=== PATIENT | female | born 1960 | race Caucasian/White ===

== ENCOUNTER → 2024-09-16 | Outpatient (CLI) | payer MEDICARE, SELFPAY ==
[2024-09-16 16:05] LABS: Absolute Lymphocyte Count 1.41 X10^3/uL (0.83-4.51); Absolute Neutrophil Count 3.2 X10^3/uL (2.0-7.7); Basophil# 0.06 X10^3/uL; Basophil% 1.2 % (0-1); Eosinophil# 0.08 X10^3/uL; Eosinophils% 1.6 % (0-5); Hematocrit 37.9 % (37-47); Hemoglobin 12.6 g/dL (12.0-15.0); Lymphocyte # 1.41 X10^3/ul (0.83-4.51); Lymphocyte % 27.9 % (19-41); Mean Corp Hgb Conc 33.2 g/dL (32-36); Mean Corpuscular Volume 96.2 fL (81-99); Mean Platelet Vol. 11.5 fl (6.2-12.0); Monocyte% 5.9 % (0-10); NRBC Flagged by Analyzer 0 % (0-5); Neutrophil # 3.19 X10^3/uL (2.7-7.7); Platelet Count 278 K/mm3 (150-450); RBC Distribution Width CV 12.5 % (11.6-14.6); RBC Distribution Width SD 44.1 fl (35.1-43.9); Red Blood Count 3.94 M/mm3 (4.2-5.4); White Blood Count 5.1 K/mm3 (4.4-11.0)
[2024-09-16 16:07] LABS: ALB/GLOB Ratio 1.5 RATIO (0.9-2.4); AST(SGOT) 21 U/L (<=31); Alanine Aminotransfer ALT/SGPT 13 U/L (<=34); Alkaline Phosphatase 65 U/L (35-104); Anion Gap 12 (5-15); BUN 18 mg/dL (4-19); BUN/Creat Ratio 20.3 RATIO (10-20); Calcium,Total 9.1 mg/dL (7.6-11.0); Carbon Dioxide 23.4 mmol/L (21.0-32.0); Chloride 104 mmol/L (98-108); Creatinine, Serum 0.87 mg/dL (0.70-1.20); EST Glomerular Filtration Rate 74 (>60); Globulin 2.7 g/dL (2.2-4.2); Glucose 146 mg/dL (70-99); Potassium 3.8 mmol/L (3.3-5.1); Protein, Total 6.7 g/dL (5.9-8.4); Sodium Level 139 mmol/L (133-145); Total Bilirubin 0.36 mg/dL (0.00-1.30)
== END | disposition home or self-care (01) ==
PROVIDERS: PCP Family Medicine; Visit Provider Family Medicine
DX: R60.0 Localized edema (principal)
CPT/HCPCS: 36415; 80053; 84443; 85025

== ENCOUNTER → 2024-10-07 | Outpatient (CLI) | payer MEDICARE, SELFPAY ==
--- NOTE | 2024-10-07 11:30 | RAD_ITS ---
PROCEDURE: CERV SPINE 2 OR 3 VIEWS 10/07/2024 REASON FOR EXAM: NECK PAIN TECHNIQUE: 3 views of the cervical spine. AP, lateral and open-mouth odontoid view COMPARISON: None available FINDINGS: Cervical spine is visualized on the lateral view from the skull base to the top of T1. No fracture or malalignment. No prevertebral soft tissue swelling. Suggestion of minimal anterolisthesis C4 on C5. Lnqwgani-wa-hkwfzw joint space narrowing C6-7. Bilateral mid to lower cervical facet hypertrophic changes. Suggestion of possible right carotid calcific plaque formation. Visualized apices appear clear. Edentulous. RAD/Cerv Spine 2 or 3 Views IMPRESSION: No fracture or malalignment. No prevertebral soft tissue swelling. Spondylosis/discogenic change. Suggestion of minimal anterolisthesis C4 on C5. Rfuudxiy-en-qlkgnw joint space narrowing C6-7. Bilateral mid to lower cervical facet hypertrophic changes Reading Location: [id number]
== END | disposition home or self-care (01) ==
LOC: MTRAD 11:25
PROVIDERS: PCP Family Medicine; Referring Provider Family Medicine; Visit Provider Family Medicine
DX: M54.2 Cervicalgia (principal)
CPT/HCPCS: 72040

== ENCOUNTER → 2024-11-11 | Outpatient (CLI) | payer MEDICARE, SELFPAY | END | disposition home or self-care (01) | LOC: BIMLAB 12:05 | PROVIDERS: PCP Family Medicine; Referring Provider Family Medicine; Visit Provider Family Medicine | DX: E03.9 Hypothyroidism, unspecified (principal) | CPT/HCPCS: 36415; 84439; 84443 ==

== ENCOUNTER → 2024-12-04 | Outpatient (CLI) | payer MEDICARE, SELFPAY ==
[2024-12-04 17:20] LABS: Hemoglobin A1c 5.4 % (<=5.6)
== END | disposition home or self-care (01) ==
LOC: BIMLAB 14:45
PROVIDERS: PCP Family Medicine; Referring Provider Family Medicine; Visit Provider Family Medicine
DX: R73.9 Hyperglycemia, unspecified (principal)
CPT/HCPCS: 36415; 83036

== ENCOUNTER 2025-02-02 02:16 | Emergency (ER) | payer MEDICARE, MEDICAID, SELFPAY ==
[2025-02-02 02:17] VITALS: BP 113/86; PULSE 93; RESP 16; TEMP 36.6; O2SAT 98; BMI 30.2
[2025-02-02 02:45] LABS: Hematocrit 35.7 % (37-47); Hemoglobin 12.3 g/dL (12.0-15.0); Immature Granulocytes Count 0.020 X10^3/uL (0.0-0.0); Mean Corp Hgb Conc 34.5 g/dL (32-36); Mean Corpuscular Volume 90.8 fL (81-99); Mean Platelet Vol. 10.4 fl (6.2-12.0); NRBC Flagged by Analyzer 0 % (0-5); Platelet Count 256 K/mm3 (150-450); RBC Distribution Width CV 12.9 % (11.6-14.6); RBC Distribution Width SD 42.5 fl (35.1-43.9); Red Blood Count 3.93 M/mm3 (4.2-5.4); White Blood Count 6.4 K/mm3 (4.4-11.0)
[2025-02-02 03:06] LABS: Alcohol, Blood (Medical)-Serum 58.6 mg/dL (<=10.0); Anion Gap 15 (5-15); BUN 11 mg/dL (4-19); BUN/Creat Ratio 12.9 RATIO (10-20); Calcium,Total 8.5 mg/dL (7.6-11.0); Carbon Dioxide 22.0 mmol/L (21.0-32.0); Chloride 103 mmol/L (98-108); Estimated Creatinine Clearance 54.17 ml/min (50-250); Glucose 109 mg/dL (70-99); Potassium 3.0 mmol/L (3.3-5.1)
[2025-02-02 03:12] LABS: Barbiturate Urine NEGATIVE (< 200 ng/mL); Benzodiazepine Urine PRESUMPTIVE POSITIVE (< 200 ng/mL); PCP Urine NEGATIVE (< 25 ng/mL); THC Urine PRESUMPTIVE POSITIVE (< 50 ng/mL)
[2025-02-02 03:16] VITALS: PULSE 80; RESP 18; O2SAT 97
--- OUTSIDE RECORDS SUMMARY | 2025-02-02 03:40 | XMS RPT_ITS | CCD ---
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 change in appetite Eyes Eyes: No blurry vision, change in vision, eye pain or Light sensitivity ENT ENT: No abnormal hearing, ear or mastoid pain, tinnitus, nasal congestion, headache(s), neck pain or sore throat Resp Respiratory: No cough, shortness of breath, snoring or wheezing Cardio Cardiology: Positive for other (skull pain migrates to different places and neck pain ); No chest pain at rest, chest pain with exertion, excessive sweating, shortness of breath, dyspnea on exertion, lightheadedness, orthopnea or palpitations Gastro GI: No abdominal pain, change in bowel habits, constipation, cramping, diarrhea, nausea/dyspepsia or vomiting Genitourinary-Female: No burning urination, painful urination, urinary incontinence, urinary frequency, blood in urine, abnormal periods or pelvic pain Musc Musculoskeletal: No abnormal gait, joint pain, back pain, limited range of motion, neck pain, numbness, stiffness, tingling or Arthritis Skin Skin: No dry skin, redness, lesions, itchy eyes, rash or wounds Neuro Neurology: No abnormal gait, abnormal hearing, abnormal speech, dizziness, weakness, frequent falls, headache(s), memory loss, numbness or tingling Psych Psychiatric: Positive for abnormal sleep pattern, Positive for anxiety, No change in appetite, Positive for depression, Positive for hopelessness, No memory loss, Positive for mood swings and No Thoughts of harming yourself/Others Endo Endocrine: No cold intolerance, excessive sweating, fatigue, flushing, heat intolerance, increased thirst/drinking, increased hunger or weight change Aller/Imm Allergy/Immunologic: No itchy eyes, seasonal allergy symptoms, hives or wheezing Kolby/Lymp Hematologic/Lymphatic: No easy bleeding, easy bruising or enlarged lymph nodes Exam Const General: cooperative, no acute distress and anxious Nutritional Appearance: average body habi (more content not included)... Normal [facility] Basic metabolic 2000 panelon 04-29-2024 Anion gap [Moles/Vol] 10 mmol/L Normal 8-15 [facility] Comment on above: Order Comment: Speci men Type: BLOOD SPECIMEN Ordering Facility: [facility] Address: [address] [place] [address] Performed By: #### 2 4321-2, 54540-1, HSTNT #### [facility] CLIA [id number] [address] [place] [address] [place] Calcium [Mass/Vol] 9.2 mg/dL Normal 8.5-10.2 [facility] Comment on above: Order Comment: Speci men Type: BLOOD SPECIMEN Ordering Facility: [facility] Address: [address] [place] [address] Performed By: #### 2 4321-2, 83324-8, HSTNT #### [facility] CLIA [id number] [address] [place] [address] [place] Chloride [Moles/Vol] 103 mmol/L Normal 98-107 [facility] Comment on above: Order Comment: Speci men Type: BLOOD SPECIMEN Ordering Facility: [facility] Address: [address] [place] [address] Performed By: #### 2 4321-2, 91774-4, HSTNT #### [facility] CLIA [id number] [address] [place] [address] [place] CO2 [Moles/Vol] 25 mmol/L Normal 22-30 [facility] Comment on above: Order Comment: Speci men Type: BLOOD SPECIMEN Ordering Facility: [facility] Address: [address] [place] [address] Performed By: #### 2 4321-2, 28695-0, HSTNT #### [facility] CLIA [id number] [address] [place] [address] [place] Creatinine [Mass/Vol] 1.07 mg/dL High 0.58-0.96 [facility] Comment on above: Order Comment: Lyn reyes Type: BLOOD SPECIMEN Ordering Facility: [facility] Address: [address] [place] [address] Performed By: #### 2 4321-2, 61337-4, HSTNT #### [facility] CLIA [id number] [address] [place] [address] [place] Creatinine and Glomerular filtration rate.predicted panel (S/P/Bld) 58 mL/min/1.73m??? Low >=60 [facility] Comment on above: Order Comment: Lyn reyes Type: BLOOD SPECIMEN Ordering Facility: [facility] Address: [address] [place] [address] Result Comment: Viviana mated Glomerular Filtration Rate (eGFR) is calculated using the 2020 CKD-EPI creatinine equation. This equation utilizes serum creatinine, sex, and age as parameters. The creatinine assay has traceable calibration to isotope dilution-mass spectrometry. Refer to KDIGO guidelines for clinical interpretation. In patients with unstable renal function, e.g. those with acute kidney injury, the eGFR may not accurately reflect actual GFR. Performed By: #### 2 4321-2, 21736-6, HSTNT #### [facility] CLIA [id number] [address] [place] [address] [place] Glucose [Mass/Vol] 97 mg/dL Normal 74-99 [facility] Comment on above: Order Comment: Lyn reyes Type: BLOOD SPECIMEN Ordering Facility: [facility] Address: [address] [place] [address] Result Comment: The [place] Diabetes Association (ADA) provides guidance for cutoff values for fasting glucose and random glucose. The ADA defines fasting as no caloric intake for at least 8 hours. Fasting plasma glucose results between 100 to 125 mg/dL indicate increased risk for diabetes (prediabetes). Fasting plasma glucose results greater than or equal to 126 mg/dL meet the criteria for diagnosis of diabetes. In the absence of unequivocal hyperglycemia, results should be confirmed by repeat testing. In a patient with classic symptoms of hyperglycemia or hyperglycemic crisis, random plasma glucose results greater than or equal to 200 mg/dL meet the criteria for diagnosis of diabetes. Reference: Standards of Medical Care in Diabetes 2016, [place] Diabetes Association. Diabetes Care. 2016.39(Suppl 1). Performed By: #### 2 4321-2, 68315-5, HSTNT #### [facility] CLIA [id number] [address] [place] [address] [place] Potassium [Moles/Vol] 4.0 mmol/L Normal 3.7-5.1 [facility] Comment on above: Order Comment: Speci men Type: BLOOD SPECIMEN Ordering Facility: [facility] Address: [address] [place] [address] Performed By: #### 2 4321-2, 07072-1, HSTNT #### [facility] CLIA [id number] [address] [place] [address] [place] Sodium [Moles/Vol] 138 mmol/L Normal 136-144 [facility] Comment on above: Order Comment: Speci men Type: BLOOD SPECIMEN Ordering Facility: [facility] Address: [address] [place] [address] Performed By: #### 2 4321-2, 52493-9, HSTNT #### [facility] CLIA [id number] [address] [place] [address] [place] Urea nitrogen [Mass/Vol] 16 mg/dL Normal 7- [facility] Comment on above: Order Comment: Speci men Type: BLOOD SPECIMEN Ordering Facility: [facility] Address: [address] [place] [address] Performed By: #### 2 4321-2, 44392-6, HSTNT #### [facility] CLIA [id number] [address] [place] [address] [place] CBC W Auto Differential pane l (Bld)on 04-29-2024 Basophils (Bld) [#/Vol] 10*3/uL Normal <0.11 [facility] Comment on above: Order Comment: Speci men Type: BLOOD SPECIMEN Ordering Facility: [facility] Address: [address] [place] [address] Performed By: #### 5 7021-8 #### [facility] CLIA [id number] [address] [place] [address] [place] Basophils/100 WBC (Bld) 0.3 % Normal [facility] Comment on above: Order Comment: Speci men Type: BLOOD SPECIMEN Ordering Facility: [facility] Address: [address] [place] [address] Performed By: #### 5 7021-8 #### [facility] CLIA [id number] [address] [place] [address] [place] Differential cell count method Nom (Bld) Auto Normal [facility] Comment on above: Order Comment: Speci men Type: BLOOD SPECIMEN Ordering Facility: [facility] Address: [address] [place] [address] Performed By: #### 5 7021-8 #### [facility] CLIA [id number] [address] [place] [address] [place] Eosinophils (Bld) [#/Vol] 10*3/uL Normal <0.46 [facility] Comment on above: Order Comment: Speci men Type: BLOOD SPECIMEN Ordering Facility: [facility] Address: [address] [place] [address] Performed By: #### 5 7021-8 #### [facility] CLIA [id number] [address] [place] [address] [place] Eosinophils/100 WBC (Bld) 0.3 % Normal [facility] Comment on above: Order Comment: Speci men Type: BLOOD SPECIMEN Ordering Facility: [facility] Address: [address] [place] [address] Performed By: #### 5 7021-8 #### [facility] CLIA [id number] [address] [place] [address] [place] Erythrocyte distribution width (RBC) [Ratio] 11.9 % Normal 11.5-15.0 [facility] Comment on above: Order Comment: Speci men Type: BLOOD SPECIMEN Ordering Facility: [facility] Address: [address] [place] [address] Performed By: #### 5 7021-8 #### [facility] CLIA [id number] [address] [place] [address] [place] Hematocrit (Bld) [Volume fraction] 38.9 % Normal 36.0-46.0 [facility] Comment on above: Order Comment: Speci men Type: BLOOD SPECIMEN Ordering Facility: [facility] Address: [address] [place] [address] Performed By: #### 5 7021-8 #### [facility] CLIA [id number] [address] [place] [address] [place] Hemoglobin (Bld) [Mass/Vol] 13.2 g/dL Normal 11.5-15.5 [facility] Comment on above: Order Comment: Speci men Type: BLOOD SPECIMEN Ordering Facility: [facility] Address: [address] [place] [address] Performed By: #### 5 7021-8 #### [facility] CLIA [id number] [address] [place] [address] [place] Immature granulocytes (Bld) [#/Vol] 0.04 10*3/uL Normal <0.10 [facility] Comment on above: Order Comment: Speci men Type: BLOOD SPECIMEN Ordering Facility: [facility] Address: [address] [place] [address] Performed By: #### 5 7021-8 #### [facility] CLIA [id number] [address] [place] [address] [place] Immature granulocytes/100 WBC (Bld) 0.7 % Normal [facility] Comment on above: Order Comment: Speci men Type: BLOOD SPECIMEN Ordering Facility: [facility] Address: [address] [place] [address] Performed By: #### 5 7021-8 #### [facility] CLIA [id number] [address] [place] [address] [place] Lymphocytes (Bld) [#/Vol] 1.60 10*3/uL Normal 1.00-4.00 [facility] Comment on above: Order Comment: Speci men Type: BLOOD SPECIMEN Ordering Facility: [facility] Address: [address] [place] [address] Performed By: #### 5 7021-8 #### [facility] CLIA [id number] [address] [place] [address] [place] Lymphocytes/100 WBC (Bld) 27.3 % Normal [facility] Comment on above: Order Comment: Speci men Type: BLOOD SPECIMEN Ordering Facility: [facility] Address: [address] [place] [address] Performed By: #### 5 7021-8 #### [facility] CLIA [id number] [address] [place] [address] [place] MCH (RBC) [Entitic mass] 31.7 pg Normal 26.0-34.0 [facility] Comment on above: Order Comment: Speci men Type: BLOOD SPECIMEN Ordering Facility: [facility] Address: [address] [place] [address] Performed By: #### 5 7021-8 #### [facility] CLIA [id number] [address] [place] [address] [place] MCHC (RBC) [Mass/Vol] 33.9 g/dL Normal 30.5-36.0 [facility] Comment on above: Order Comment: Speci men Type: BLOOD SPECIMEN Ordering Facility: [facility] Address: [address] [place] [address] Performed By: #### 5 7021-8 #### [facility] CLIA [id number] [address] [place] [address] [place] MCV (RBC) [Entitic vol] 93.5 fL Normal 80.0-100.0 [facility] Comment on above: Order Comment: Speci men Type: BLOOD SPECIMEN Ordering Facility: [facility] Address: [address] [place] [address] Performed By: #### 5 7021-8 #### [facility] CLIA [id number] [address] [place] [address] [place] Monocytes (Bld) [#/Vol] 0.36 10*3/uL Normal <0.87 [facility] Comment on above: Order Comment: Speci men Type: BLOOD SPECIMEN Ordering Facility: [facility] Address: [address] [place] [address] Performed By: #### 5 7021-8 #### [facility] CLIA [id number] [address] [place] [address] [place] Monocytes/100 WBC (Bld) 6.1 % Normal [facility] Comment on above: Order Comment: Speci men Type: BLOOD SPECIMEN Ordering Facility: [facility] Address: [address] [place] [address] Performed By: #### 5 7021-8 #### [facility] CLIA [id number] [address] [place] [address] [place] Neutrophils (Bld) [#/Vol] 3.83 10*3/uL Normal 1.45-7.50 [facility] Comment on above: Order Comment: Speci men Type: BLOOD SPECIMEN Ordering Facility: [facility] Address: [address] [place] [address] Performed By: #### 5 7021-8 #### [facility] CLIA [id number] [address] [place] [address] [place] Neutrophils/100 WBC (Bld) 65.3 % Normal [facility] Comment on above: Order Comment: Speci men Type: BLOOD SPECIMEN Ordering Facility: [facility] Address: [address] [place] [address] Performed By: #### 5 7021-8 #### [facility] CLIA [id number] [address] [place] [address] [place] Nucleated RBC (Bld) [#/Vol] 10*3/uL Normal <0.01 [facility] Comment on above: Order Comment: Speci men Type: BLOOD SPECIMEN Ordering Facility: [facility] Address: [address] [place] [address] Performed By: #### 5 7021-8 #### [facility] CLIA [id number] [address] [place] [address] [place] Nucleated RBC/100 WBC (Bld) [Ratio] 0.0 /[address] [facility] Comment on above: Order Comment: Speci men Type: BLOOD SPECIMEN Ordering Facility: [facility] Address: [address] [place] [address] Performed By: #### 5 7021-8 #### [facility] CLIA [id number] [address] [place] [address] [place] Platelet mean volume (Bld) [Entitic vol] 11.0 fL Normal 9.0-12.7 [facility] Comment on above: Order Comment: Speci men Type: BLOOD SPECIMEN Ordering Facility: [facility] Address: [address] [place] [address] Performed By: #### 5 7021-8 #### [facility] CLIA [id number] [address] [place] [address] [place] Platelets (Bld) [#/Vol] 255 10*3/uL Normal 150-400 [facility] Comment on above: Order Comment: Speci men Type: BLOOD SPECIMEN Ordering Facility: [facility] Address: [address] [place] [address] Performed By: #### 5 7021-8 #### [facility] CLIA [id number] [address] [place] [address] [place] RBC (Bld) [#/Vol] 4.16 10*6/uL Normal 3.90-5.20 [facility] Comment on above: Order Comment: Speci men Type: BLOOD SPECIMEN Ordering Facility: [facility] Address: [address] [place] [address] Performed By: #### 5 7021-8 #### [facility] CLIA [id number] [address] [place] [address] [place] WBC (Bld) [#/Vol] 5.87 10*3/uL Normal 3.70-11.00 [facility] Comment on above: Order Comment: Speci men Type: BLOOD SPECIMEN Ordering Facility: [facility] Address: [address] [place] [address] Performed By: #### 5 7021-8 #### [facility] CLIA [id number] [address] [place] [address] [place] [facility] ED NOTEon 04-29-2024 ED NOTE HNO ID: [id number] Author: MIREILLE CORONA, FRANCESCA Service: ? Author Type: Registered Nurse Type: ED Notes Filed: 04/29/2024 14:10 Note Text: Patient ambulates to triage without difficulty. She c/o being SOA for the past 4-5 months. [facility] ED PROV NOTEon 04-29-2024 ED PROV NOTE HNO ID: [id number] Author: DELMA GREY MD Service: ? Author Type: Physician Type: ED Provider Notes Filed: 04/29/2024 16:17 Note Text: ED Provider Note Patient Name: Alicia Patterson : 1960 SERVICE DATE: 04/29/24 History Patient presents with: Shortness of Breath 63-year-old female presents with complaints of shortness of breath and difficulty breathing. States she has a history of emphysema and since December, she has been having episodes of shortness of breath and difficulty breathing. States symptoms usually worsen the more she gets anxious. When she relaxes and when she uses Xanax, the symptoms improved. Patient lives in [place] but came appear 2 weeks ago to visit family. Patient had another episode of shortness of breath and difficulty breathing therefore came in for evaluation. She has had she did take some Xanax prior to arrival and her breathing at this time is back to normal. She has had episodes of chest pain but that is also intermittent. Pain starts on its own, last for about 5 minutes or so. It does not radiate into the neck or over to the arm. It does not get worse with breathing when it is present nor does it increase her shortness of breath. Cannot recall when the last time she had chest pain. She is not having any discomfort at this time though. No other lightheadedness or dizziness. No other abdominal discomfort, vomiting or diarrhea. No other swelling or pain to the calves. PAST MEDICAL HISTORY Diagnosis Date Hyperlipemia acid reflux, arthritis, depression PAST SURGICAL HISTORY Procedure Laterality Date PAST SURGICAL HISTORY OF knee, shoulder, appendix FAMILY HISTORY Problem Relation Age of Onset Cancer Father Cancer Paternal Grandfather Diabetes Mother Diabetes Sister Heart Mother Heart Sister Social History Tobacco Use Smoking status: Former Smokeless tobacco: Not on file Tobacco comments: 1 pk x 30 yrs Substance and Sexual Activity Alcohol use: No Drug use: Not on file Sexual activity: Not on file ALLERGIES No Known Allergies Review of Systems All other systems reviewed and are negative. Physical Exam Vitals [04/29/24 1410] BP Pulse Temp Temp src Resp SpO2 Weight Height 120/74 84 36.9 ?C (98.5 ?F) Oral 16 97 % 54.2 kg (119 lb 7.8 oz) 1.499 m (4' 11) Physical Exam Vitals (Unremarkable vital signs with a blood pressure 120. Pulse of 84. Respiratory rate at 16 with a 97% saturation. Temp at 98.5.) and nursing note reviewed. Constitutional: Appearance: She is well-developed. Comments: 63-year-old female in no respiratory distress and is speaking full sentences. HENT: Head: Normocephalic and atraumatic. Right Ear: External ear normal. Left Ear: External ear normal. Nose: Nose normal. Eyes: Conjunctiva/sclera: Conjunctivae normal. Pupils: Pupils are equal, round, and reactive to light. Neck: Thyroid: No thyromegaly. Trachea: No tracheal deviation. Cardiovascular: Rate and Rhythm: Normal rate and regular rhythm. Heart sounds: No murmur heard. No friction rub. No gallop. Pulmonary: Effort: Pulmonary effort is normal. No respiratory distress. Breath sounds: Normal breath sounds. Abdominal: General: Bowel sounds are normal. There is no distension. Palpations: Abdomen is soft. There is no mass. Tenderness: There is no abdominal tenderness. There is no guarding or rebound. Musculoskeletal: General: No tenderness. Normal range of motion. Cervical back: Normal range of motion and neck supple. Skin: General: Skin is warm and dry. Coloration: Skin is not pale. Findings: No rash. Neurological: General: No focal deficit present. Mental Status: She is alert and oriented to person, place, and time. Deep Tendon Reflexes: Reflexes are normal and symmetric. Psychiatric: Behavior: Behavior normal. Thought Content: Thought content normal. Judgment: Judgment normal. Diagnostic Testing ED Labs Ordered and Reviewed VENOUS BLOOD GASES - Abnormal; Notable for the following components: Result Value Ref Range pO2, Venous 190 (*) 35 - 45 mmHg O2 Saturation, Venous 100 (*) 60 - 85 % Oxyhemoglobin, Venous 97 (*) 60 - 85 % All other components within normal limits BASIC METABOLIC PANEL NT PRO BNP COMPLETE BLOOD COUNT AND DIFFERENTIAL HIGH SENSITIVITY TROPONIN T Results for orders placed or performed during the hospital encounter of 04/29/24 BASIC METABOLIC PANEL Result Value Ref Range Glucose 97 74 - 99 mg/dL BUN 16 7 - 21 mg/dL Creatinine 1.07 (H) 0.58 - 0.96 mg/dL Sodium 138 136 - 144 mmol/L Potassium 4.0 3.7 - 5.1 mmol/L Chloride 103 98 - 107 mmol/L CO2 25 22 - 30 mmol/L Anion Gap 10 8 - 15 mmol/L Calcium, Total 9.2 8.5 - 10.2 mg/dL Estimated Glomerular Filtration Rate 58 (L) >=60 mL/min/1.73m? NT PRO BNP Result Value Ref Range NT Pro BNP 88 <125 pg/mL COMPLETE BLOOD COUNT AND DIFFERENTIAL Result Value Ref Range WBC 5.87 3. (more content not included)... Normal [facility] Gas and Carbon monoxide pane l (BldV)on 04-29-2024 Base excess Calc (BldV) [Moles/Vol] 1 mmol/L Normal 0-2 [facility] Comment on above: Order Comment: Speci men Type: VENOUS BLOOD SPECIMEN Ordering Facility: [facility] Address: [address] [place] [address] Performed By: #### 2 4344-4 #### [facility] CLIA [id number] [address] [place] [address] [place] Body temperature 98.6 [degF] Normal [facility] Comment on above: Order Comment: Speci men Type: VENOUS BLOOD SPECIMEN Ordering Facility: [facility] Address: [address] [place] [address] Performed By: #### 2 4344-4 #### [facility] CLIA [id number] [address] [place] [address] [place] Calcium.ionized (Bld) [Mass/Vol] 1.14 mmol/L Normal 1.08-1.30 [facility] Comment on above: Order Comment: Speci men Type: VENOUS BLOOD SPECIMEN Ordering Facility: [facility] Address: [address] [place] [address] Performed By: #### 2 4344-4 #### [facility] CLIA [id number] [address] [place], [place] [address] [place] Calcium.ionized adjusted to pH 7.4 (BldA) [Moles/Vol] 1.13 mmol/L Normal 1.08-1.30 [facility] Comment on above: Order Comment: Speci men Type: VENOUS BLOOD SPECIMEN Ordering Facility: [facility] Address: [address] [place] [address] Performed By: #### 2 4344-4 #### [facility] CLIA [id number] [address] [place] [address] [place] Carboxyhemoglobin (BldV) [Mass fraction] 2.0 % Normal 0.0-2.0 [facility] Comment on above: Order Comment: Speci men Type: VENOUS BLOOD SPECIMEN Ordering Facility: [facility] Address: [address] [place] [address] Result Comment: Carb oxyhemoglobin Reference Range for Smokers: 2.0-8.0% Performed By: #### 2 4344-4 #### [facility] CLIA [id number] [address] [place] [address] [place] Chloride [Moles/Vol] 105 mmol/L Normal 97-105 [facility] Comment on above: Order Comment: Speci men Type: VENOUS BLOOD SPECIMEN Ordering Facility: [facility] Address: [address] [place] [address] Performed By: #### 2 4344-4 #### [facility] CLIA [id number] [address] [place] [address] [place] CO2 (BldV) [Partial pressure] 44 mm[Hg] Normal 42-55 [facility] Comment on above: Order Comment: Speci men Type: VENOUS BLOOD SPECIMEN Ordering Facility: [facility] Address: [address] [place] [address] Performed By: #### 2 4344-4 #### [facility] CLIA [id number] [address] [place] [address] [place] Glucose [Mass/Vol] 89 mg/dL Normal 60-105 [facility] Comment on above: Order Comment: Speci men Type: VENOUS BLOOD SPECIMEN Ordering Facility: [facility] Address: [address] [place] [address] Performed By: #### 2 4344-4 #### [facility] CLIA [id number] [address] [place] [address] [place] HCO3 (Bld) [Moles/Vol] 27 mmol/L Normal 24-28 [facility] Comment on above: Order Comment: Speci men Type: VENOUS BLOOD SPECIMEN Ordering Facility: [facility] Address: [address] [place] [address] Performed By: #### 2 4344-4 #### [facility] CLIA [id number] [address] [place] [address] [place] Hematocrit (Bld) [Volume fraction] 43.5 % Normal 36.0-46.0 [facility] Comment on above: Order Comment: Speci men Type: VENOUS BLOOD SPECIMEN Ordering Facility: [facility] Address: [address] [place] [address] Performed By: #### 2 4344-4 #### [facility] CLIA [id number] [address] [place] [address] [place] Hemoglobin (Bld) [Mass/Vol] 14.2 g/dL Normal 11.5-15.5 [facility] Comment on above: Order Comment: Speci men Type: VENOUS BLOOD SPECIMEN Ordering Facility: [facility] Address: [address] [place] [address] Performed By: #### 2 4344-4 #### [facility] CLIA [id number] [address] [place] [address] [place] Lactate [Moles/Vol] 1.0 mmol/L Normal 0.5-2.2 [facility] Comment on above: Order Comment: Speci men Type: VENOUS BLOOD SPECIMEN Ordering Facility: [facility] Address: [address] [place] [address] Performed By: #### 2 4344-4 #### [facility] CLIA [id number] [address] [place] [address] [place] Methemoglobin (Bld) [Mass fraction] % Normal 0.0-1.5 [facility] Comment on above: Order Comment: Speci men Type: VENOUS BLOOD SPECIMEN Ordering Facility: [facility] Address: [address] [place], [place] [address] Performed By: #### 2 4344-4 #### [facility] CLIA [id number] [address] [place] [address] [place] O2 THERAPY RA=Room Air Normal [facility] Comment on above: Order Comment: Speci men Type: VENOUS BLOOD SPECIMEN Ordering Facility: [facility] Address: [address] [place] [address] Performed By: #### 2 4344-4 #### [facility] CLIA [id number] [address] [place] [address] [place] Oxygen (BldV) [Partial pressure] 190 mm[Hg] High 35-45 [facility] Comment on above: Order Comment: Speci men Type: VENOUS BLOOD SPECIMEN Ordering Facility: [facility] Address: [address] [place] [address] Performed By: #### 2 4344-4 #### [facility] CLIA [id number] [address] [place] [address] [place] Oxygen saturation in Venous blood 100 % High 60-85 [facility] Comment on above: Order Comment: Speci men Type: VENOUS BLOOD SPECIMEN Ordering Facility: [facility] Address: [address] [place], [place] [address] Performed By: #### 2 4344-4 #### [facility] CLIA [id number] [address] [place] [address] [place] Oxyhemoglobin (BldV) [Mass fraction] 97 % High 60-85 [facility] Comment on above: Order Comment: Speci men Type: VENOUS BLOOD SPECIMEN Ordering Facility: [facility] Address: [address] [place] [address] Performed By: #### 2 4344-4 #### [facility] CLIA [id number] [address] [place] [address] [place] pH (BldV) 7.39 [pH] Normal 7.32-7.42 [facility] Comment on above: Order Comment: Speci men Type: VENOUS BLOOD SPECIMEN Ordering Facility: [facility] Address: [address] [place] [address] Performed By: #### 2 4344-4 #### [facility] CLIA [id number] [address] [place] [address] [place] Potassium [Moles/Vol] 3.8 mmol/L Normal 3.5-5.0 [facility] Comment on above: Order Comment: Speci men Type: VENOUS BLOOD SPECIMEN Ordering Facility: [facility] Address: [address] [place] [address] Performed By: #### 2 4344-4 #### [facility] CLIA [id number] [address] [place] [address] [place] Sodium [Moles/Vol] 140 mmol/L Normal 136-144 [facility] Comment on above: Order Comment: Speci men Type: VENOUS BLOOD SPECIMEN Ordering Facility: [facility] Address: [address] [place] [address] Performed By: #### 2 4344-4 #### [facility] CLIA [id number] [address] [place] [address] [place] HIGH SENSITIVITY TROPONIN To n 04-29-2024 Troponin T.cardiac High sensitivity method [Mass/Vol] <6 Normal <12 [facility] Comment on above: Order Comment: Speci men Type: BLOOD SPECIMEN Ordering Facility: [facility] Address: [address] [place] [address] Performed By: #### 2 4321-2, 10433-2, HSTNT #### [facility] CLIA [id number] [address] [place] [address] [place] NT-proBNP SerPl-mCncon 04-29 Natriuretic peptide.B prohormone N-Terminal [Mass/Vol] 88 pg/mL Normal <125 [facility] Comment on above: Order Comment: Speci men Type: BLOOD SPECIMEN Ordering Facility: [facility] Address: [address] [place] [address] Performed By: #### 2 4321-2, 44010-9, HSTNT #### [facility] CLIA [id number] [address] [place] [address] [place] XR CHEST 2V FRONTAL/LATon XR CHEST 2V FRONTAL/LAT * * *Final Report* * * DATE OF EXAM: Apr 29 2024 3:21PM UDX [id number] - XR CHEST 2V FRONTAL/LAT / PROCEDURE REASON: Shortness of breath * * * * Physician Interpretation * * * * EXAMINATION: CHEST RADIOGRAPH (2 VIEW FRONTAL and LATERAL) CLINICAL HISTORY: Shortness of breath MQ: [id number] EXAM DATE/TIME: 04/29/2024 3:21 PM COMPARISON: Chest x-ray 03/27/2012. RESULT: Lines, tubes, and devices: None. Lungs and pleura: No consolidation. No lung mass. No pleural effusion. No pneumothorax. Cardiomediastinal silhouette: Normal cardiomediastinal silhouette. Bones and soft tissues: Unremarkable. IMPRESSION: No acute radiographic abnormality. Winchman/Crane Operator: PSCB Transcribe Date/Time: Apr 29 2024 3:26P Dictated by : SISSY FELICIANO MD This examination was interpreted and the report reviewed and electronically signed by: SISSY FELICIANO MD on Apr 29 2024 3:26PM EST [id number] Normal [facility] BASIC METABOLIC PANELon 02-0 Anion gap [Moles/Vol] 9 mmol/L Low 10 - 20 [facility] Comment on above: Performed By: #### B MP #### [address] [id number] Calcium [Mass/Vol] 9.3 mg/dL Normal 8.6 - 10.3 [facility] Comment on above: Performed By: #### B MP #### [address] [id number] Chloride [Moles/Vol] 106 mmol/L Normal 98 - 107 [facility] Comment on above: Performed By: #### B MP #### [address] [id number] Creatinine [Mass/Vol] 0.66 mg/dL Normal 0.50 - 1.05 [facility] Comment on above: Performed By: #### B MP #### [address] [id number] eGFR FEMALE >90 Normal >90 [facility] Comment on above: Result Comment: CALC ULATIONS OF ESTIMATED GFR ARE PERFORMED USING THE 2020 CKD-EPI STUDY REFIT EQUATION WITHOUT THE RACE VARIABLE FOR THE IDMS-TRACEABLE CREATININE METHODS. https://jasn.asnjournals.org/content/early//ASN.95891 88393 Performed By: #### B MP #### [address] [id number] Glucose [Mass/Vol] 94 mg/dL Normal 74 - 99 [facility] Comment on above: Performed By: #### B MP #### [address] [id number] HCO3 (Bld) [Moles/Vol] 28 mmol/L Normal 21 - 32 [facility] Comment on above: Performed By: #### B MP #### [address] [id number] Potassium [Moles/Vol] 4.0 mmol/L Normal 3.5 - 5.3 [facility] Comment on above: Performed By: #### B MP #### [address] [id number] Sodium [Moles/Vol] 139 mmol/L Normal 136 - 145 [facility] Comment on above: Performed By: #### B MP #### [address] [id number] Urea nitrogen [Mass/Vol] 11 mg/dL Normal 6 - 23 [facility] Comment on above: Performed By: #### B MP #### [address] [place] [id number] CBCon 08-15-2022 Erythrocyte distribution width (RBC) [Ratio] 12.4 % Normal 11.5 - 14.5 [facility] Comment on above: Performed By: #### C BC #### [address] [id number] Hematocrit (Bld) [Volume fraction] 39.5 % Normal 36.0 - 46.0 [facility] Comment on above: Performed By: #### C BC #### [address] [id number] Hemoglobin (Bld) [Mass/Vol] 13.3 g/dL Normal 12.0 - 16.0 [facility] Comment on above: Performed By: #### C BC #### [address] [id number] MCHC (RBC) [Mass/Vol] 33.7 g/dL Normal 32.0 - 36.0 [facility] Comment on above: Performed By: #### C BC #### [address] [id number] MCV (RBC) [Entitic vol] 97 fL Normal 80 - 100 [facility] Comment on above: Performed By: #### C BC #### [address] [id number] Platelets (Bld) [#/Vol] 250 10*3/uL Normal 150 - 450 [facility] Comment on above: Performed By: #### C BC #### [address] [id number] RBC 4.07 x10E12/L Normal 4.00 - 5.20 [facility] Comment on above: Performed By: #### C BC #### [address] [id number] WBC (Bld) [#/Vol] 6.5 10*3/uL Normal 4.4 - 11.3 [facility] Comment on above: Performed By: #### C BC #### [address] [id number] Laboratory - Blood bankon ABO group Nom (Bld) O -EM [facility] Work Phone: Comment on above: No previous history found to confirm this result.If transfusion of RBC's or FFP is requested, a second sample must be collected at a separate phlebotomy to confirm the ABORH. Confirmatory ABORH can only be ordered by Lab Wildlife Ecologist. 08/15/2022 Blood group antibody screen Ql Negative [facility] Work Phone: Rh immune globulin screen (Bld) [Interp] Positive [facility] Work Phone: Laboratory - Chemistry and C hemistry - challengeon 08-15-2022 Anion gap [Moles/Vol] 9 mmol/L below low threshold 10 - 20 [facility] Work Phone: Calcium [Mass/Vol] 9.3 mg/dL 8.6 - 10.3 [facility] Work Phone: Chloride [Moles/Vol] 106 mmol/L 98 - 107 [facility] Work Phone: CO2 [Moles/Vol] 28 mmol/L 21 - 32 [facility] Work Phone: Creatinine [Mass/Vol] 0.66 mg/dL See Below - [facility] Work Phone: Comment on above: Reference Range: 0.5 0 - 1.05 Glucose [Mass/Vol] 94 mg/dL 74 - 99 [facility] Work Phone: Potassium [Moles/Vol] 4.0 mmol/L 3.5 - 5.3 - [facility] Work Phone: Sodium [Moles/Vol] 139 mmol/L 136 - 145 [facility] Work Phone: Urea nitrogen [Mass/Vol] 11 mg/dL 6 - 23 -[facility] Work Phone: Laboratory - Hematology and Cell countson 08-15-2022 Erythrocyte distribution width (RBC) [Ratio] 12.4 % See Below -[facility] Work Phone: Comment on above: Reference Range: 11. 5 - 14.5 Hematocrit (Bld) [Volume fraction] 39.5 % See Below -[facility] Work Phone: Comment on above: Reference Range: 36. 0 - 46.0 Hemoglobin (Bld) [Mass/Vol] 13.3 g/dL See Below [facility] Work Phone: Comment on above: Reference Range: 12. 0 - 16.0 MCHC (RBC) [Mass/Vol] 33.7 g/dL See Below - [facility] Work Phone: Comment on above: Reference Range: 32. 0 - 36.0 MCV (RBC) [Entitic vol] 97 fL 80 - 100 -[facility] Work Phone: Platelets (Bld) [#/Vol] 250 10*3/uL 150 - 450 -[facility] Work Phone: RBC (Bld) [#/Vol] 4.07 {x10E12/L} See Below -[facility] Work Phone: Comment on above: Reference Range: 4.0 0 - 5.20 WBC (Bld) [#/Vol] 6.5 10*3/uL 4.4 - 11.3 [facility] Work Phone: No Panel Informationon 08-15 >90 >90 [facility] Work Phone: Comment on above: CALCULATIONS OF VIVIANA MATED GFR ARE PERFORMED USING THE 2020 CKD-EPI STUDY REFIT EQUATION WITHOUT THE RACE VARIABLE FOR THE IDMS-TRACEABLE CREATININE METHODS.https://jasn.asnjournals.org/content//A SN.9834528758 TYPE + SCREENon 08-15-2022 ABO TYPE O Normal [facility] Comment on above: Result Comment: No p revious history found to confirm this result. If transfusion of RBC's or FFP is requested, a second sample must be collected at a separate phlebotomy to confirm the ABORH. Confirmatory ABORH can only be ordered by Lab Wildlife Ecologist. 08/15/2022 Performed By: #### T +S #### [address] [id number] RH TYPE Positive Normal [facility] Comment on above: Performed By: #### T +S #### [address] [id number] URINALYSIS WITH CULTURE IF I NDICATEDon 08-15-2022 Appearance (U) HAZY Normal CLEAR [facility] Comment on above: Performed By: #### U ARFX #### [address] [id number] Bilirubin Ql (U) Negative Normal NEGATIVE [facility] Comment on above: Performed By: #### U ARFX #### [address] [id number] Color (U) YELLOW Normal STRAW,YELLO W [facility] Comment on above: Performed By: #### U ARFX #### [address] [id number] Glucose Ql (U) Negative Normal NEGATIVE [facility] Comment on above: Performed By: #### U ARFX #### [address] [id number] Hemoglobin Ql (U) Negative Normal NEGATIVE [facility] Comment on above: Performed By: #### U ARFX #### [address] [id number] Ketones Ql (U) Negative Normal NEGATIVE [facility] Comment on above: Performed By: #### U ARFX #### [address] [id number] Leukocyte esterase Test strip Ql (U) Negative Normal NEGATIVE [facility] Comment on above: Performed By: #### U ARFX #### [address] [id number] Nitrite Ql (U) Negative Normal NEGATIVE [facility] Comment on above: Performed By: #### U ARFX #### [address] [id number] pH (U) 8.0 [pH] Normal 5.0 - 8.0 [facility] Comment on above: Performed By: #### U ARFX #### [address] [id number] Protein Ql (U) Negative Normal NEGATIVE [facility] Comment on above: Performed By: #### U ARFX #### [address] [id number] Specific gravity (U) [Rel density] 1.015 Normal 1.005 - 1.035 [facility] Comment on above: Performed By: #### U ARFX #### [address] [id number] Urobilinogen (U) [Mass/Vol] mg/dL Normal 0.0 - 1.9 [facility] Comment on above: Performed By: #### U ARFX #### [address] [id number] Color (U) YELLOW See Below [facility] Work Phone: Comment on above: Reference Range: STR AW,YELLOW Glucose Ql (U) Negative NEGATIVE [facility] Work Phone: Ketones Ql (U) Negative NEGATIVE [facility] Work Phone: Leukocyte esterase Test strip Ql (U) Negative NEGATIVE [facility] Work Phone: pH (U) 8.0 [pH] 5.0 - 8.0 SHARMILA-EMMike Christiansen [facility] Work Phone: Protein (U) [Mass/Vol] Negative NEGATIVE SHARMILA PimentelEM Alfonso [facility] Work Phone: RBC (U) [#/Vol] Negative NEGATIVE SHARMILA-MARIYA Hamilton [facility] Work Phone: Specific gravity (U) [Rel density] 1.015 1 See Below MARIUM Christiansen [facility] Work Phone: Comment on above: Reference Range: 1.0 05 - 1.035 URINALYSIS WITH CULTURE IF INDICATED Negative NEGATIVE [facility] Work Phone: URINALYSIS WITH CULTURE IF INDICATED <2.0 0.0 - 1.9 MARIUM Christiansen [facility] Work Phone: URINALYSIS WITH CULTURE IF INDICATED HAZY CLEAR MARIUM Christiansen [employer] Work Phone: Medicare Annual Wellness Vis iton 07-19-2022 Medicare Annual Wellness Visit *Chief Complaint Annual Medicare Wellness. History of Present Illness The patient is being seen for the subsequent annual wellness visit. Past Medical, Surgical and Family History: reviewed and updated in chart. Interval History: Patient has not been hospitalized previously. Medications and Supplements: No, the patient is not using opioids. Health Risk Assessment:. Paper HRA completed by patient and scanned into chart. Patient Self Assessment of Health Status: good. Tobacco use: User Alcohol use: Non-User Illicit drug use: Non-User Current diet: unhealthy diet, does not consume adequate fluids and does not consume caffeine. Exercise Frequency: the patient does not exercise. Depression/Suicide Screening: Patient has a current diagnosis of depression . During the past 2 weeks, the patient has not felt down, depressed or hopeless. During the past 2 weeks, the patient has not felt little interest or pleasure in doing things. Loss of spouse Hearing Impairment: none. Cognitive Impairment: Cognitive impairment was observed, patient or family reported no cognitive impairment. Bathing: performs independently. Dressing: performs independently. Walking: performs independently. Toileting: performs independently. Feeding: performs independently. Personal Hygiene: performs independently. Bowels: continent. Bladder: continent. Managing Finances: needs assistance. Shopping: needs assistance. Managing Medications: needs assistance. Housework / Basic Home Maintenance: performs independently. Handling Transportation: needs assistance. Preparing Meals: performs independently. Using the Telephone/ Communication Devices: performs independently. Falls Risk Screening:. ALICIA has not fallen in the last 6 months. Her fall did not result in injury. Advance directives:. Advanced Care Planning discussed and documented advance care plan or surrogate decision maker documented in the medical record. Patient has no living will. Patient has healthcare POA. Rx , ROV Review of Systems Eyes: oph. Gastrointestinal: cologuard 20'. Genitourinary: unexplained vaginal bleeding and Dr. Spaulding , , 08/16/22 hysterectomy. Psychiatric: depression, sleep disturbances and anxiety, but no confusion, no memory lapses or loss, not suicidal, no personality change and no emotional problems. 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) Generalized anxiety disorder (300.02) (F41.1) GERD without esophagitis (530.81) (K21.9) Headache (784.0) (R51.9) Hyperlipidemia (272.4) (E78.5) Menieres disease (386.00) (H81.09) New daily persistent headache (339.42) (G44.52) Nicotine dependence (305.1) (F17.200) Osteoporosis, unspecified osteoporosis type, unspecified pathological fracture presence (733.00) (M81.0) Pelvic pain in female (625.9) (R10.2) Post-menopausal bleeding (627.1) (N95.0) Post-traumatic headache, not intractable, unspecified chronicity pattern (339.20) (G44.309) Potassium deficiency (276.8) (E87.6) 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) (G51.0) Screening for malignant neoplasm of colon (V76.51) (Z12.11) Seborrheic keratoses (702.19) (L82.1) Skin lesion of left leg (709.9) (L98.9) Syncope (780.2) (R55) Past Medical History History of Elevated triglycerides with high cholesterol (272.2) (E78.2) History of Health care maintenance (V70.0) (Z00.00) History of arthritis (V13.4) (Z87.39) History of chest pain (V13.89) (Z87.898) History of depression (V11.8) (Z86.59) History of peptic ulcer (V12.71) (Z87.11) History of urinary tract infection (V13.02) (Z87.440) History of vitamin D deficiency (V12.1) (Z86.39) History of Skin lesion (709.9) (L98.9) Surgical History History of Appendectomy History of Knee Surgery Right History of Rotator Cuff Repair History of Tubal ligation Family History Family history of cardiac disorder (V17.49) (Z82.49) Family history of cardiac pacemaker (V17.49) (Z82.49) Family history of diabetes mellitus (V18.0) (Z83.3) Family history of Mesothelioma Family history of cardiac pacemaker (V17.49) (Z82.49) Family history of diabetes mellitus (V18.0) (Z83.3) Family history of malignant neoplasm of brain (V16.8) (Z80.8) Family history of lung cancer (V16.1) (Z80.1) Family history of malignant neoplasm of ovary (V16.41) (Z80.41) Family history of lung cancer (V16.1) (Z80.1) Family history of lung cancer (more content not included)... Normal [facility] Tobacco Screening.on 023 Adult depression screening assessment No [facility] 125 Work Phone: Adult depression screening assessment Yes [facility] 125 Work Phone: Fall risk assessment a) No falls within the last year [facility] Work Phone: Tobacco use status CPHS a) Yes [facility] 125 Work Phone: Tobacco Screening. Yes [facility] Work Phone: Blood Pressure Cuff Sizeon 1 08-14-2021 Adult depression screening assessment No [facility] Work [facility]: Fall risk assessment a) No falls within the last year [facility] Work Phone: Tobacco use status CP a) Yes [facility] Work Phone: Blood Pressure Cuff Size Adult [facility] Work Phone: CHIEF OF PLANNING - Office Visiton 12-0 CHIEF OF PLANNING - Office Visit Diagnoses/Problems Assessed Bacterial vaginosis (616.10,041.9) (N76.0,B96.89) Orders Start: metroNIDAZOLE 500 MG Oral Tablet; TAKE 1 TABLET TWICE DAILY UNTIL FINISHED Patient Discussion/Summary Risks benefits alternatives discussed with the patient risks including bleeding infection or damage to surrounding tissues. Bleeding requiring blood transfusion transfusion reaction or infection. Infection of the superficial or deep spaces. Damage to bladder bowel ureters vascular structures abdominal wall. Requiring further surgery acutely or prolonged hospitalization or returned to the operating room. All questions answered to the best my ability. Provider Impressions 61-year-old recurrent postmenopausal bleeding VNOTES hysterectomy BSO Chief Complaint Alicia is here today for consult. History of Present IllnessAlicia is a 61 year old patient here today for surgery scheduling. She was seen last in person on 12/20/21 r/t PMB. At that time, hysteroscopy and EMB was completed. A phone visit was scheduled and completed to review results. She is here today to discuss hysterectomy due to another episode of PMB 2 weeks ago. This was a period amount of bleeding lasting 1 day. Heel Sorter: FRANCESCA New Reviewed options short-term estrogen use to stabilize likely atrophic endometrium with re biopsy versus hysterectomy Primary diagnosis is atrophic postmenopausal bleeding Reviewed risk of smoking and improvement in surgical risk with cessation she is at 1 pack/day we will try Review of Systems Constitutional: no fever and no chills. Respiratory: no shortness of breath. Gastrointestinal: no abdominal pain, no constipation, no nausea, no diarrhea and no melena. Genitourinary: no dysuria, no urinary incontinence, no vaginal dryness, no vaginal itching, no dyspareunia, no pelvic pain, no dysmenorrhea, no sexual problems, no change in urinary frequency, no vaginal discharge, no unexplained vaginal bleeding, no lesion/sore and no vulvar/vaginal pain. Integumentary: no nipple discharge, no breast pain and no breast lump. Neurological: no headache. Psychiatric: no sleep disturbances, no anxiety and no depression. Endocrine: no hot flashes. 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) Generalized anxiety disorder (300.02) (F41.1) GERD without esophagitis (530.81) (K21.9) Headache (784.0) (R51.9) Hyperlipidemia (272.4) (E78.5) Menieres disease (386.00) (H81.09) New daily persistent headache (339.42) (G44.52) Nicotine dependence (305.1) (F17.200) Osteoporosis, unspecified osteoporosis type, unspecified pathological fracture presence (733.00) (M81.0) Pelvic pain in female (625.9) (R10.2) Post-menopausal bleeding (627.1) (N95.0) Post-traumatic headache, not intractable, unspecified chronicity pattern (339.20) (G44.309) Potassium deficiency (276.8) (E87.6) 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) (G51.0) Screening for malignant neoplasm of colon (V76.51) (Z12.11) Seborrheic keratoses (702.19) (L82.1) Skin lesion of left leg (709.9) (L98.9) Syncope (780.2) (R55) Past Medical History Problems History of Elevated triglycerides with high cholesterol (272.2) (E78.2) History of Health care maintenance (V70.0) (Z00.00) History of arthritis (V13.4) (Z87.39) History of chest pain (V13.89) (Z87.898) History of depression (V11.8) (Z86.59) History of peptic ulcer (V12.71) (Z87.11) History of urinary tract infection (V13.02) (Z87.440) History of vitamin D deficiency (V12.1) (Z86.39) History of Skin lesion (709.9) (L98.9) Surgical History Problems History of Appendectomy History of Knee Surgery Right History of Rotator Cuff Repair History of Tubal ligation Family History Mother Family history of cardiac disorder (V17.49) (Z82.49) Family history of cardiac pacemaker (V17.49) (Z82.49) Family history of diabetes mellitus (V18.0) (Z83.3) Father Family history of Mesothelioma Sister Family history of cardiac pacemaker (V17.49) (Z82.49) Family history of diabetes mellitus (V18.0) (Z83.3) Brother Family history of malignant neoplasm of brain (V16.8) (Z80.8) Maternal Grandmother Family history of lung cancer (V16.1) (Z80.1) Family history of malignant neoplasm of ovary (V16.41) (Z80.41) Paternal Grandmother Family history of lung cancer (V16.1) (Z80.1) Paternal Grandfather Family history of lung c (more content not included)... Normal [employer] Basic Metabolic Panelon 08-3 Anion gap [Moles/Vol] 12 mmol/L Normal 9-15 [facility] Comment on above: Performed By: #### B MP #### [facility] [address] [place] [address] Calcium [Mass/Vol] 9.7 mg/dL Normal 8.5-9.9 [facility] Comment on above: Performed By: #### B MP #### [facility] [address] [place] [address] Chloride [Moles/Vol] 106 mmol/L Normal 95-107 [facility] Comment on above: Performed By: #### B MP #### [facility] [address] [place] [address] CO2 [Moles/Vol] 26 mmol/L Normal 20-[address] [facility] Comment on above: Performed By: #### B MP #### [facility] [address] [place] [address] Creatinine [Mass/Vol] 0.60 mg/dL Normal 0.50-0.90 [facility] Comment on above: Performed By: #### B MP #### [facility] [address] [place] [address] GFR >60.0 Normal >60 [facility] Comment on above: Result Comment: >60 mL/min/1.73m2 EGFR, calc. for ages 18 and older using the MDRD formula (not corrected for weight), is valid for stable renal function. Performed By: #### B MP #### [facility] [address] [place] [address] GFR/1.73 sq M.predicted among blacks MDRD (S/P/Bld) [Vol rate/Area] mL/min/{1.73_m2} Normal >60 [facility] Comment on above: Result Comment: >60 mL/min/1.73m2 EGFR, calc. for ages 18 and older using the MDRD formula (not corrected for weight), is valid for stable renal function. Performed By: #### B MP #### [facility] [address] [place] [address] Glucose [Mass/Vol] 116 mg/dL Critically high 70-99 [facility] Comment on above: Performed By: #### B MP #### [facility] [address] [place] [address] Potassium [Moles/Vol] 3.5 mmol/L Normal 3.4-4.9 [facility] Comment on above: Performed By: #### B MP #### [facility] [address] [place] [address] Sodium [Moles/Vol] 144 mmol/L Normal 135-144 [facility] Comment on above: Performed By: #### B MP #### [facility] [address] [place] [address] Urea nitrogen [Mass/Vol] 20 mg/dL Normal 8-23 [facility] Comment on above: Performed By: #### B MP #### [facility] [address] [place] [address] Anion gap [Moles/Vol] 12 mmol/L [facility] Calcium [Mass/Vol] 9.7 mg/dL 8.5 - 9.9 mg/dL [facility] Chloride [Moles/Vol] 106 mmol/L [facility] CO2 [Moles/Vol] 26 mmol/L [facility] Creatinine [Mass/Vol] 0.6 mg/dL 0.5 - 0.9 mg/dL [facility] GFR >60.0 60 - PINF [facility] Comment on above: >60 mL/min/1.73m2 EG FR, calc. for ages 18 and older using the MDRD formula (not corrected for weight), is valid for stable renal function. GFR Non- >60.0 60 - PINF [facility] Comment on above: >60 mL/min/1.73m2 EG FR, calc. for ages 18 and older using the MDRD formula (not corrected for weight), is valid for stable renal function. Glucose [Mass/Vol] 116 mg/dL High 70 - 99 mg/dL [facility] Interpretation and review of laboratory results Abnormal [facility] Potassium [Moles/Vol] 3.5 mmol/L [facility] Sodium [Moles/Vol] 144 mmol/L [facility] Urea nitrogen (BldV) [Mass/Vol] 20 mg/dL 8 - 23 mg/dL [facility] CBC With Platelet and Differ entialon 03-09-2022 Abs Imm Granulocytes 0.0 K/uL Normal [facility] Comment on above: Performed By: #### C BCWD #### [facility] [address] [place] [address] Basophils (Bld) [#/Vol] 0.0 10*3/uL Normal 0.0-0.1 [facility] Comment on above: Performed By: #### C BCWD #### [facility] [address] [place] [address] Basophils/100 WBC (Bld) 0.2 % Normal 0.1-1.2 [facility] Comment on above: Performed By: #### C BCWD #### [facility] [address] [place] [address] Eosinophils (Bld) [#/Vol] 0.0 10*3/uL Normal 0.0-0.4 [facility] Comment on above: Performed By: #### C BCWD #### [facility] [address] [place] [address] Eosinophils/100 WBC (Bld) 0.3 % Low 0.7-5.8 [facility] Comment on above: Performed By: #### C BCWD #### [facility] [address] [place] [address] Erythrocyte distribution width (RBC) [Ratio] 12.5 % Normal 11.7-14.4 [facility] Comment on above: Performed By: #### C BCWD #### [facility] [address] [place] [address] Hematocrit (Bld) [Volume fraction] 41.0 % Normal 37.0-47.0 [facility] Comment on above: Performed By: #### C BCWD #### [facility] [address] [place] [address] Hemoglobin (Bld) [Mass/Vol] 13.9 g/dL Normal 11.2-15.7 [facility] Comment on above: Performed By: #### C BCWD #### [facility] [address] [place] [address] Imm Granulocytes 0.3 % Normal [facility] Comment on above: Performed By: #### C BCWD #### [facility] [address] [place] [address] Lymphocytes (Bld) [#/Vol] 1.7 10*3/uL Normal 1.2-3.7 [facility] Comment on above: Performed By: #### C BCWD #### [facility] [address] [place] [address] Lymphocytes/100 WBC (Bld) 29.4 % Normal [facility] Comment on above: Performed By: #### C BCWD #### [facility] [address] [place] [address] MCH (RBC) [Entitic mass] 31.7 pg Normal 25.6-32.2 [facility] Comment on above: Performed By: #### C BCWD #### [facility] [address] [place] [address] MCHC 33.9 % Normal 32.2-35.5 [facility] Comment on above: Performed By: #### C BCWD #### [facility] [address] [place] [address] MCV (RBC) [Entitic vol] 93.6 fL Normal 79.4-94.8 [facility] Comment on above: Performed By: #### C BCWD #### [facility] [address] [place] [address] Monocytes (Bld) [#/Vol] 0.5 10*3/uL Normal 0.2-0.9 [facility] Comment on above: Performed By: #### C BCWD #### [facility] [address] [place] [address] Monocytes/100 WBC (Bld) 8.6 % Normal 4.7-12.5 [facility] Comment on above: Performed By: #### C BCWD #### [facility] [address] [place] [address] Neutrophils (Bld) [#/Vol] 3.6 10*3/uL Normal 1.6-6.1 [facility] Comment on above: Performed By: #### C BCWD #### [facility] [address] [place] [address] Neutrophils/100 WBC (Bld) 61.2 % Normal 34.0-71.1 [facility] Comment on above: Performed By: #### C BCWD #### [facility] [address] [place] [address] Platelets (Bld) [#/Vol] 173 10*3/uL Low 182-369 [facility] Comment on above: Performed By: #### C BCWD #### [facility] [address] [place] [address] RBC (Bld) [#/Vol] 4.38 10*6/uL Normal 3.93-5.22 [facility] Comment on above: Performed By: #### C BCWD #### [facility] [address] [place] [address] WBC (Bld) [#/Vol] 5.9 10*3/uL Normal 4.0-10.0 [facility] Comment on above: Performed By: #### C ROLANDO #### [facility] [address] [place] [address] CBC with Auto Differentialon 03-09-2022 Basophils (Bld) [#/Vol] 0.0 10*3/uL 0 - 0.1 K/uL [facility] Basophils/100 WBC (Bld) 0.2 % 0.1 - 1.2 % [facility] Eosinophils (Bld) [#/Vol] 0.0 10*3/uL 0 - 0.4 K/uL [facility] Eosinophils/100 WBC (Bld) 0.3 % Low 0.7 - 5.8 % [facility] Hematocrit (Bld) [Volume fraction] 41.0 % 37 - 47 % [facility] Hemoglobin (Bld) [Mass/Vol] 13.9 g/dL 11.2 - 15.7 g/dL [facility] Immature granulocytes (Bld) [#/Vol] 0.0 10*3/uL [facility] Immature granulocytes/100 WBC (Bld) 0.3 % [facility] Interpretation and review of laboratory results Abnormal [facility] Lymphocytes (Bld) [#/Vol] 1.7 10*3/uL 1.2 - 3.7 K/uL [facility] Lymphocytes/100 WBC (Bld) 29.4 % [facility] MCH (RBC) [Entitic mass] 31.7 pg 25.6 - 32.2 pg [facility] MCHC (RBC) [Mass/Vol] 33.9 % 32.2 - 35.5 % [facility] MCV (RBC) [Entitic vol] 93.6 fL 79.4 - 94.8 fL [facility] Monocytes (Bld) [#/Vol] 0.5 10*3/uL 0.2 - 0.9 K/uL [facility] Monocytes/100 WBC (Bld) 8.6 % 4.7 - 12.5 % [facility] Neutrophils Absolute 3.6 K/uL 1.6 - 6 .1 K/uL [facility] Neutrophils/100 WBC (Bld) 61.2 % 34 - 71.1 % [facility] Platelet distribution width (Bld) [Ratio] 12.5 % 11.7 - 14.4 % [facility] Platelets (Bld) [#/Vol] 173 10*3/uL Low 182 - 369 K/uL [facility] RBC (Bld) [#/Vol] 4.38 10*6/uL [facility] WBC (Bld) [#/Vol] 5.9 10*3/uL 4 - 10 K/uL [facility] CHIEF OF PLANNING - Office Visiton - CHIEF OF PLANNING - Office Visit Provider Melba coronel 61-year-old status post hysteroscopy directed sampling of endometrium low risk atrophy with scarring, inadequate sampling however no high risk features if rebleed plan hysterectomy Chief Complaint A telephone visit (audio only) between the patient (at the originating site) and the provider (at the distant site) was utilized to provide this telehealth service. Verbal consent was requested and obtained from ALICIA PATTERSON on this date, 01/05/2022 02:45 PM , for a telehealth visit. Est pt 2 week fu to emb History of Present IllnessInadequate sample no high risk features on imaging or hysteroscopy okay to follow clinically discussed rebleed recommend proceeding to hysterectomy 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) Generalized anxiety disorder (300.02) (F41.1) GERD without esophagitis (530.81) (K21.9) Headache (784.0) (R51.9) Hyperlipidemia (272.4) (E78.5) Menieres disease (386.00) (H81.09) New daily persistent headache (339.42) (G44.52) Nicotine dependence (305.1) (F17.200) Osteoporosis, unspecified osteoporosis type, unspecified pathological fracture presence (733.00) (M81.0) Pelvic pain in female (625.9) (R10.2) Post-menopausal bleeding (627.1) (N95.0) Post-traumatic headache, not intractable, unspecified chronicity pattern (339.20) (G44.309) Potassium deficiency (276.8) (E87.6) 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) (G51.0) Screening for malignant neoplasm of colon (V76.51) (Z12.11) Seborrheic keratoses (702.19) (L82.1) Skin lesion of left leg (709.9) (L98.9) Syncope (780.2) (R55) Past Medical History Problems History of Elevated triglycerides with high cholesterol (272.2) (E78.2) History of Health care maintenance (V70.0) (Z00.00) History of arthritis (V13.4) (Z87.39) History of chest pain (V13.89) (Z87.898) History of depression (V11.8) (Z86.59) History of peptic ulcer (V12.71) (Z87.11) History of urinary tract infection (V13.02) (Z87.440) History of vitamin D deficiency (V12.1) (Z86.39) History of Skin lesion (709.9) (L98.9) Surgical History Problems History of Appendectomy History of Knee Surgery Right History of Rotator Cuff Repair History of Tubal ligation Family History Mother Family history of cardiac disorder (V17.49) (Z82.49) Family history of cardiac pacemaker (V17.49) (Z82.49) Family history of diabetes mellitus (V18.0) (Z83.3) Father Family history of Mesothelioma Sister Family history of cardiac pacemaker (V17.49) (Z82.49) Family history of diabetes mellitus (V18.0) (Z83.3) Brother Family history of malignant neoplasm of brain (V16.8) (Z80.8) Maternal Grandmother Family history of lung cancer (V16.1) (Z80.1) Family history of malignant neoplasm of ovary (V16.41) (Z80.41) Paternal Grandmother Family history of lung cancer (V16.1) (Z80.1) Paternal Grandfather Family history of lung cancer (V16.1) (Z80.1) Other Family history of osteoporosis (V17.81) (Z82.62) Social History Problems Current every day smoker (305.1) (F17.200) Daily caffeine consumption Disabled Does not use illicit drugs (V49.89) (Z78.9) No alcohol use Allergies Medication No Known Drug Allergies Recorded By: Shweta Lindsay; 04/15/2015 3:21:57 PM Current Meds Medication NameInstruction Alendronate Sodium 70 MG Oral TabletTAKE 1 TABLET BY MOUTH 1 TIME WEEKLY Atorvastatin Calcium 20 MG Oral TabletTAKE 1 TABLET BY MOUTH EVERY DAY Combivent Respimat 20-100 MCG/ACT Inhalation Aerosol SolutionINHALE 1 PUFF BY MOUTH FOUR TIMES DAILY. MAXIMUM OF 6 PUFFS IN 24 HOURS Meclizine HCl - 25 MG Oral TabletTAKE 1 TABLET 3 times daily PRN Pantoprazole Sodium 40 MG Oral Tablet Delayed ReleaseTAKE 1 TABLET BY MOUTH EVERY DAY Sertraline HCl - 100 MG Oral Tablet1 and 1/2 tablets daily. Ventolin HFA 108 (90 Base) MCG/ACT Inhalation Aerosol SolutionINHALE 1 TO 2 PUFFS EVERY 4 TO 6 HOURS NEEDED. Time Total time on date of patient encounter: 11 minutes. Signatures Electronically signed by : David Spaulding MD; Jan 05 2022 3:57PM EST (Author) Normal Touchworks Blood Pressure Cuff Sizeon 0 12-20-2021 Adult depression screening assessment No -[facility] Work Phone: Fall risk assessment a) No falls within the last year PHYLLISMike Christiansen [employer] Work Phone: Last menstrual period start date paul 2003 [facility] [employer] Work Phone: Tobacco use status [facility] a) Yes MARIUM Christiansen [employer] Work Phone: Blood Pressure Cuff Size Adult [facility] [employer] Work Phone: Blood Pressure Cuff Size Yes [facility] [employer] Work Phone: No Panel Informationon 12-20 PHYLLISMike Christiansen [employer] Work Phone: CHIEF OF PLANNING - Office Visiton 12-08 CHIEF OF PLANNING - Office Visit Diagnoses/Problems Assessed Post-menopausal bleeding (627.1) (N95.0) Orders Surgical Pathology; Status:Hold For - Specimen/Data Collection,Retrospective Authorization; Requested for:20Dec2021; Type : Biopsy Fixative : Formalin Site A : endometrial biopsy Provider Impressions 61-year-old status post hysteroscopy directed sampling of endometrium low risk atrophy with scarring Post review of pathology in 2 weeks Chief Complaint Alicia is here today for a procedure. History of Present Illnessis here today as an EST patient. She is a 61 yo patient here for Hysteroscopy with EMB due to postmenopausal bleeding. Her last visit was 11/24/21. Today, she has no complaints. Due to the patient's age I.O HCG was not collected. Heel Sorter FRANCESCA New TIme out completed. Discharge instructions were given. Review of Systems Constitutional: no fever and no chills. Gastrointestinal: no abdominal pain, no constipation, no nausea, no vomiting and no melena. Genitourinary: unexplained vaginal bleeding. Neurological: no headache. 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) Generalized anxiety disorder (300.02) (F41.1) GERD without esophagitis (530.81) (K21.9) Headache (784.0) (R51.9) Hyperlipidemia (272.4) (E78.5) Menieres disease (386.00) (H81.09) New daily persistent headache (339.42) (G44.52) Nicotine dependence (305.1) (F17.200) Osteoporosis, unspecified osteoporosis type, unspecified pathological fracture presence (733.00) (M81.0) Pelvic pain in female (625.9) (R10.2) Post-menopausal bleeding (627.1) (N95.0) Post-traumatic headache, not intractable, unspecified chronicity pattern (339.20) (G44.309) Potassium deficiency (276.8) (E87.6) 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) (G51.0) Screening for malignant neoplasm of colon (V76.51) (Z12.11) Seborrheic keratoses (702.19) (L82.1) Skin lesion of left leg (709.9) (L98.9) Syncope (780.2) (R55) Past Medical History Problems History of Elevated triglycerides with high cholesterol (272.2) (E78.2) History of Health care maintenance (V70.0) (Z00.00) History of arthritis (V13.4) (Z87.39) History of chest pain (V13.89) (Z87.898) History of depression (V11.8) (Z86.59) History of peptic ulcer (V12.71) (Z87.11) History of urinary tract infection (V13.02) (Z87.440) History of vitamin D deficiency (V12.1) (Z86.39) History of Skin lesion (709.9) (L98.9) Surgical History Problems History of Appendectomy History of Knee Surgery Right History of Rotator Cuff Repair History of Tubal ligation Family History Mother Family history of cardiac disorder (V17.49) (Z82.49) Family history of cardiac pacemaker (V17.49) (Z82.49) Family history of diabetes mellitus (V18.0) (Z83.3) Father Family history of Mesothelioma Sister Family history of cardiac pacemaker (V17.49) (Z82.49) Family history of diabetes mellitus (V18.0) (Z83.3) Brother Family history of malignant neoplasm of brain (V16.8) (Z80.8) Maternal Grandmother Family history of lung cancer (V16.1) (Z80.1) Family history of malignant neoplasm of ovary (V16.41) (Z80.41) Paternal Grandmother Family history of lung cancer (V16.1) (Z80.1) Paternal Grandfather Family history of lung cancer (V16.1) (Z80.1) Other Family history of osteoporosis (V17.81) (Z82.62) Social History Problems Current every day smoker (305.1) (F17.200) Daily caffeine consumption Disabled Does not use illicit drugs (V49.89) (Z78.9) No alcohol use Allergies Medication No Known Drug Allergies Recorded By: Shweta Lindsay; 04/15/2015 3:21:57 PM Current Meds Medication NameInstruction Alendronate Sodium 70 MG Oral TabletTAKE 1 TABLET BY MOUTH 1 TIME WEEKLY Atorvastatin Calcium 20 MG Oral TabletTAKE 1 TABLET BY MOUTH EVERY DAY Combivent Respimat 20-100 MCG/ACT Inhalation Aerosol SolutionINHALE 1 PUFF BY MOUTH FOUR TIMES DAILY. MAXIMUM OF 6 PUFFS IN 24 HOURS Meclizine HCl - 25 MG Oral TabletTAKE 1 TABLET 3 times daily PRN Pantoprazole Sodium 40 MG Oral Tablet Delayed ReleaseTAKE 1 TABLET BY MOUTH EVERY DAY Sertraline HCl - 100 MG Oral Tablet1 and 1/2 tablets daily. Ventolin HFA 108 (90 Base) MCG/ACT Inhalation Aerosol SolutionINHALE 1 TO 2 PUFFS EVERY 4 TO 6 HOURS NEEDED. Vitals Vital Signs Recorded: 20Dec2021 02:38PM [id number] [id number] Blood Pressure Cuff SizeAdult Qinwuz174 lb BMI Siivhxfqlq64.04 kg/m2 BSA Calculated1.44 Tobacco Usea) Ye (more content not included)... Normal Touchworks [facility] Surgical Pathology Depar tmenton 12-20-2021 [facility] Surgical Pathology Department Name ALICIA PATTERSON Pathologist: MAULIK RENE MD Date of Procedure: 12/20/2021 Date Received: 12/20/2021 Date Reported 12/23/2021 Submitting Physician: DAVID SPAULDING MD Location: [facility] External # FINAL DIAGNOSIS A. ENDOMETRIAL BIOPSY: -- SCANT FRAGMENTS OF SUPERFICIAL INACTIVE ENDOMETRIUM, TOO SCANT TO FURTHER EVALUATE. Electronically Signed Out By MAULIK RENE MD/CRYSTAL By the signature on this report, the individual or group listed as making the Final Interpretation/Diagnosis certifies that they have reviewed this case. Diagnostic interpretation performed at [address] [place] [address] Clinical History: Fixative (A): FORMALIN Clinical Diagnosis History: Post-menopausal bleeding - (N95.0) Specimens Submitted As: A: ENDOMETRIAL BIOPSY Gross Description: Received in formalin, labeled with the patient's name and hospital number and EMB, is a scant amount of mucus and soft tissue aggregating to 0.2 x 0.2 x 0.2 cm. The specimen is submitted in toto in one cassette. The specimen may not survive processing. [facility]/12/20/2021 [facility] Department of Pathology [address] [place] [address] [facility] Comment on above: Performed By: #### [facility] #### [facility] Surgical Pathology Department [address] [place] [address] CHIEF OF PLANNING - Office Visiton 11-07 CHIEF OF PLANNING - Office Visit Provider Melba coronel 61-year-old recurrent postmenopausal bleeding, suspect polyp plan Hysteroscopy polypectomy Chief Complaint A telephone visit (audio only) between the patient (at the originating site) and the provider (at the distant site) was utilized to provide this telehealth service. Verbal consent was requested and obtained from ALICIA FRANCES on this date, 11/24/2021 02:00 PM , for a telehealth visit. Est pt fu to labs and us History of Present IllnessFollow-up from July appointment Ultrasound identifies heterogeneous endometrium possible polyp at fundus Reports recurrent bleed 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) Generalized anxiety disorder (300.02) (F41.1) GERD without esophagitis (530.81) (K21.9) Headache (784.0) (R51.9) Hyperlipidemia (272.4) (E78.5) Menieres disease (386.00) (H81.09) New daily persistent headache (339.42) (G44.52) Nicotine dependence (305.1) (F17.200) Osteoporosis, unspecified osteoporosis type, unspecified pathological fracture presence (733.00) (M81.0) Pelvic pain in female (625.9) (R10.2) Post-menopausal bleeding (627.1) (N95.0) Post-traumatic headache, not intractable, unspecified chronicity pattern (339.20) (G44.309) Potassium deficiency (276.8) (E87.6) 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) (G51.0) Screening for malignant neoplasm of colon (V76.51) (Z12.11) Seborrheic keratoses (702.19) (L82.1) Skin lesion of left leg (709.9) (L98.9) Syncope (780.2) (R55) Past Medical History Problems History of Elevated triglycerides with high cholesterol (272.2) (E78.2) History of Health care maintenance (V70.0) (Z00.00) History of arthritis (V13.4) (Z87.39) History of chest pain (V13.89) (Z87.898) History of depression (V11.8) (Z86.59) History of peptic ulcer (V12.71) (Z87.11) History of urinary tract infection (V13.02) (Z87.440) History of vitamin D deficiency (V12.1) (Z86.39) History of Skin lesion (709.9) (L98.9) Surgical History Problems History of Appendectomy History of Knee Surgery Right History of Rotator Cuff Repair History of Tubal ligation Family History Mother Family history of cardiac disorder (V17.49) (Z82.49) Family history of cardiac pacemaker (V17.49) (Z82.49) Family history of diabetes mellitus (V18.0) (Z83.3) Father Family history of Mesothelioma Sister Family history of cardiac pacemaker (V17.49) (Z82.49) Family history of diabetes mellitus (V18.0) (Z83.3) Brother Family history of malignant neoplasm of brain (V16.8) (Z80.8) Maternal Grandmother Family history of lung cancer (V16.1) (Z80.1) Family history of malignant neoplasm of ovary (V16.41) (Z80.41) Paternal Grandmother Family history of lung cancer (V16.1) (Z80.1) Paternal Grandfather Family history of lung cancer (V16.1) (Z80.1) Other Family history of osteoporosis (V17.81) (Z82.62) Social History Problems Current every day smoker (305.1) (F17.200) Daily caffeine consumption Disabled Does not use illicit drugs (V49.89) (Z78.9) No alcohol use Allergies Medication No Known Drug Allergies Recorded By: Shweta Lindsay; 04/15/2015 3:21:57 PM Current Meds Medication NameInstruction Alendronate Sodium 70 MG Oral TabletTAKE 1 TABLET BY MOUTH 1 TIME WEEKLY Atorvastatin Calcium 20 MG Oral TabletTAKE 1 TABLET BY MOUTH EVERY DAY Combivent Respimat 20-100 MCG/ACT Inhalation Aerosol SolutionINHALE 1 PUFF BY MOUTH FOUR TIMES DAILY. MAXIMUM OF 6 PUFFS IN 24 HOURS Meclizine HCl - 25 MG Oral TabletTAKE 1 TABLET 3 times daily PRN Pantoprazole Sodium 40 MG Oral Tablet Delayed ReleaseTAKE 1 TABLET BY MOUTH EVERY DAY Sertraline HCl - 100 MG Oral Tablet1 and 1/2 tablets daily. Ventolin HFA 108 (90 Base) MCG/ACT Inhalation Aerosol SolutionINHALE 1 TO 2 PUFFS EVERY 4 TO 6 HOURS NEEDED. Time Total time on date of patient encounter: 11 minutes. Signatures Electronically signed by : David Spaulding MD; Nov 24 2021 4:55PM EST (Author) Normal Touchworks No Panel Informationon 11-15 Normal [facility] Work Phone: US PELVIS TRANSABDOMINAL WIT H TRANSVAGINALon 11-15-2021 US PELVIS TRANSABDOMINAL WITH TRANSVAGINAL Patient Name: ALICIA PATTERSON STUDY: US PELVIS TRANSABDOMINAL WITH TRANSVAGINAL INDICATION: Post coitial bleeding N95.0: Post-menopausal bleeding. COMPARISON: None. ACCESSION NUMBER(S): [id number] ORDERING CLINICIAN: DAVID SPAULDING TECHNIQUE: Multiple multiplanar static adam scale, color and spectral waveform sonographic images of the pelvis were obtained. Transabdominal and endovaginal ultrasound was performed. This examination was interpreted at [facility]. FINDINGS: UTERUS: The uterus measures 5.1 x 2.1 x 3.2 cm. The uterine myometrium appears normal. Minimal amount of fluid is visualized in the endometrial canal near the region of the fundus. ENDOMETRIUM: The endometrium measures a thickness of 3 mm, which is normal. RIGHT ADNEXA: Right ovary is not visualized. LEFT ADNEXA: Left ovary is not visualized. CUL DE SAC: No gross free fluid is seen in the pelvic cul-de-sac. IMPRESSION: 1. Endometrial thickness is within normal limits. 2. Minimal amount of fluid is visualized in the endometrial canal near the region of fundus. 3. Bilateral ovaries are not visualized likely due to technique. Electronically signed by: NATHALIE TODD MD Normal [facility] Acetaminophen Level, Serumon 08-11-2021 Acetaminophen [Mass/Vol] ug/mL See Below [facility] Work Phone: Comment on above: Reference Range: 10. 0 - 30.0 Acetylsalicylic Acid Level, Serumon 08-11-2021 Salicylates [Mass/Vol] mg/dL 4 - 20 [facility] [employer] Work Phone: Alcohol, Serumon 08-11-2021 Ethanol [Mass/Vol] 42 mg/dL Abnormal [facility] [employer] Work Phone: Comment on above: FOR MEDICAL USE ONLY . .REF VALUES <10 Complete Blood Count + Diffe rentialon 08-11-2021 Basophils/100 WBC (Bld) 0.6 % 0.0 - 2.0 [facility] [employer] Work Phone: Erythrocyte distribution width (RBC) [Ratio] 12.5 % See Below [facility] [employer] Work Phone: Comment on above: Reference Range: 11. 5 - 14.5 Hematocrit (Bld) [Volume fraction] 38.1 % See Below [facility] [employer] Work Phone: Comment on above: Reference Range: 36. 0 - 46.0 Hemoglobin (Bld) [Mass/Vol] 12.8 g/dL See Below [facility] [employer] Work Phone: Comment on above: Reference Range: 12. 0 - 16.0 Lymphocytes/100 WBC (Bld) 42.9 % See Below [facility] [employer] Work Phone: Comment on above: Reference Range: 13. 0 - 44.0 MCHC (RBC) [Mass/Vol] 33.6 g/dL See Below [facility] [employer] Work Phone: Comment on above: Reference Range: 32. 0 - 36.0 MCV (RBC) [Entitic vol] 97 fL 80 - 100 [facility] [employer] Work Phone: Monocytes/100 WBC (Bld) 6.8 % 2.0 - 10.0 [facility] Work Phone: Neutrophils/100 WBC (Bld) 48.2 % See Below [facility] [employer] Work Phone: Comment on above: Reference Range: 40. 0 - 80.0 Platelets (Bld) [#/Vol] 212 10*3/uL 150 - 450 [facility] Work Phone: RBC (Bld) [#/Vol] 3.91 {x10E12/L} below low threshold See Below [facility] [employer] Work Phone: Comment on above: Reference Range: 4.0 0 - 5.20 WBC (Bld) [#/Vol] 4.7 10*3/uL 4.4 - 11.3 [facility] Work Phone: Complete Blood Count + Differential 0.03 {x10E9/L} See Below [facility] Work Phone: Comment on above: Reference Range: 0.0 0 - 0.10 Complete Blood Count + Differential 0.06 {x10E9/L} See Below [facility] Work Phone: Comment on above: Reference Range: 0.0 0 - 0.70 Complete Blood Count + Differential 0.32 {x10E9/L} See Below [facility] Work Phone: Comment on above: Reference Range: 0.1 0 - 1.00 Complete Blood Count + Differential 2.01 {x10E9/L} See Below [facility] Work Phone: Comment on above: Reference Range: 1.2 0 - 4.80 Complete Blood Count + Differential 2.26 {x10E9/L} See Below [facility] Work Phone: Comment on above: Reference Range: 1.2 0 - 7.70 Complete Blood Count + Differential 1.3 % 0.0 - 6.0 [facility] Work Phone: Complete Blood Count + Differential 0.2 % 0.0 - 0.9 [facility] Work Phone: Comment on above: Immature Granulocyte Count (IG) includes promyelocytes, myelocytes and metamyelocytes but does not include bands. Percent differential counts (%) should be interpreted in the context of the absolute cell counts (cells/L). Creatine Kinase, Levelon CK [Catalytic activity/Vol] 51 U/L 0 - 215 [facility] Work Phone: INFLUENZA A/B, COVID 2019 PC R,SYMPTOMATICon 08-11-2021 Date and time of symptom onset [id number] [facility] Work Phone: INFLUENZA A/B, COVID 2019 PCR,SYMPTOMATIC Not detected See Below [facility] Work Phone: Comment on above: Reference Range: Not Detected.This test has received [facility] Emergency Use Authorization (EUA) and has been verified by [facility]. This test is only authorized for the duration of time that circumstances exist to justify the authorization of the emergency use of in vitro diagnostic tests for the detection of SARS-CoV-2 virus and/or diagnosis of COVID-19 infection under section 564(b)(1) of the Act, 21 U.S.C. 360bbb-3(b)(1), unless the authorization is terminated or revoked sooner. [facility] is certified under CLIA-88 as qualified to perform high complexity testing. Testing is performed in the [facility] laboratory located at [address] [place] [address].SARS-CoV-2/Flu/RSV Multiplex Test: Fact sheet for providers: https://www.fda.gov/media/331960/downloadFact sheet for patients: https://www.fda.gov/media/697083/download Reference Range: Not Detected Respiratory virus testing is performed routinely by PCR for Influenza A/B and RSV. Not Detected results do not preclude Influenza A/B or RSV infections since the adequacy of sample collection or low viral burden may impact the clinical sensitivity of this test method. SOURCE: Nasal, Nasop haryngealReference Range: Not Detected Respiratory virus testing is performed routinely by PCR for Influenza A/B and RSV. Not Detected results do not preclude Influenza A/B or RSV infections since the adequacy of sample collection or low viral burden may impact the clinical sensitivity of this test method. Laboratory - Chemistry and C hemistry - challengeon 08-11-2021 Albumin BCP dye [Mass/Vol] 3.8 g/dL 3.4 - 5.0 [facility] Work Phone: ALP [Catalytic activity/Vol] 47 U/L 33 - 136 [facility] Work Phone: ALT With P-5'-P [Catalytic activity/Vol] 13 U/L 7 - 45 [facility] Work Phone: Comment on above: Patients treated wit h Sulfasalazine may generate falsely decreased results for ALT. Anion gap [Moles/Vol] 11 mmol/L 10 - 20 [facility] Work Phone: AST With P-5'-P [Catalytic activity/Vol] 15 U/L 9 - 39 [facility] Work Phone: Bilirubin [Mass/Vol] 0.4 mg/dL 0.0 - 1.2 [facility] Work Phone: Calcium [Mass/Vol] 8.5 mg/dL below low threshold 8.6 - 10.3 [facility] Work Phone: Chloride [Moles/Vol] 109 mmol/L above high threshold 98 - 107 [facility] Work Phone: CO2 [Moles/Vol] 25 mmol/L 21 - 32 [facility] Work Phone: Creatinine [Mass/Vol] 0.67 mg/dL See Below - [facility] [employer] Work Phone: Comment on above: Reference Range: 0.5 0 - 1.05 Glucose [Mass/Vol] 86 mg/dL 74 - 99 -[facility] [employer] [facility] Work Phone: Potassium [Moles/Vol] 4.0 mmol/L 3.5 - 5.3 - [facility] [employer] [facility] Work Phone: Protein [Mass/Vol] 5.9 g/dL below low threshold 6.4 - 8.2 -[facility] [employer] [facility] Work Phone: Sodium [Moles/Vol] 141 mmol/L 136 - 145 -[facility] Work Phone: Urea nitrogen [Mass/Vol] 10 mg/dL 6 - 23 -[facility] Work Phone: Laboratory - Drug toxicology on 08-11-2021 Amphetamines Screen Ql (U) Negative NEGATIVE [facility] [employer] Work Phone: Comment on above: CUTOFF LEVEL: 500 NG /ML Cross-reactivity has been reported with high concentrations of the following drugs: buproprion, chloroquine, chlorpromazine, ephedrine, mephentermine, fenfluramine, phentermine, phenylpropanolamine, pseudoephedrine, and propranolol. Barbiturates Screen Ql (U) Negative NEGATIVE -[facility] [employer] [facility] Work Phone: Comment on above: CUTOFF LEVEL: 200 NG /ML Benzodiazepines Ql (U) Negative NEGATIVE [facility] Work Phone: Comment on above: CUTOFF LEVEL: 200 NG /ML Benzoylecgonine Screen Ql (U) Negative NEGATIVE -[facility] Work Phone: Comment on above: CUTOFF LEVEL: 150 NG /ML Cannabinoids Screen Ql (U) Positive Abnormal NEGATIVE -[facility] Work Phone: Comment on above: CUTOFF LEVEL: 50 NG/ ML Methadone Screen Ql (U) Negative NEGATIVE [facility] Work Phone: Comment on above: CUTOFF LEVEL: 150 NG /ML The metabolite C-ihwdr-wyqwviehunxaog (LAAM) is not detected by this method in concentrations that would be found in the urine of patients on LAAM therapy. Opiates Screen Ql (U) Negative NEGATIVE - [facility] Work Phone: Comment on above: CUTOFF LEVEL: 300 NG /ML The opiate screen does not detect fentanyl, meperidine, or tramadol. Oxycodone is not consistently detected (refer to Oxycodone Screen, Urine result). oxyCODONE+oxyMORphone Screen Ql (U) Negative NEGATIVE [facility] Work Phone: Comment on above: CUTOFF LEVEL: 100 NG /ML This test will accurately detect both oxycodone and oxymorphone. Phencyclidine Ql (U) Negative NEGATIVE -[facility] Work Phone: Comment on above: CUTOFF LEVEL: 25 NG/ ML Cross-reactivity has been reported with dextromethorphan. No Panel Informationon 08-11 >90 >90 -[facility] Work Phone: Comment on above: CALCULATIONS OF VIVIANA MATED GFR ARE PERFORMED USING THE 2020 CKD-EPI STUDY REFIT EQUATION WITHOUT THE RACE VARIABLE FOR THE IDMS-TRACEABLE CREATININE METHODS.https://jasn.asnjournals.org/content//A SN.5007147266 196 1 -[facility] Work Phone: [phone] [facility] Work Phone: [phone] [facility] Work Phone: 11 1 [facility] Work Phone: 44 1 [facility] Work Phone: 35 1 [facility] Work Phone: 63 1 [facility] Work Phone: [phone] 1 [facility] Work Phone: [phone] 1 [facility] Work Phone: 78 1 [facility] Work Phone: 170 1 [facility] Work Phone: 67 1 [facility] Work Phone: [email or web address] ?RetrieveTestByDateTime?P cumrfdZG=[id number]&Date=0 08-11-2021&Time=12%3a04%3a 43%3a00&TestType=ECG&Site =11&OutputType=PDF&Ext=PD F [facility] Work Phone: Normal sinus rhythm [facility] Work Phone: Normal [facility] Work Phone: [phone] [facility] Work Phone: [phone] [facility] Work Phone: SEE BELOW [facility] Work Phone: Comment on above: Drug screen results are presumptive and should not be used to assess compliance with prescribed medication. Contact the performing [facility] laboratory to add-on definitive confirmatory testing if clinically indicated. .Toxicology screening results are reported qualitatively. The concentration must be greater than or equal to the cutoff to be reported as positive. The concentration at which the screening test can detect an individual drug or metabolite varies. The absence of expected drug(s) and/or drug metabolite(s) may indicate non-compliance, inappropriate timing of specimen collection relative to drug administration, poor drug absorption, diluted/adulterated urine, or limitations of testing. For medical purposes only; not valid for forensic use. .Interpretive questions should be directed to the laboratory medical directors. Urinalysison 08-11-2021 Color (U) YELLOW See Below [facility] Work Phone: Comment on above: Reference Range: STR AW,YELLOW Glucose Ql (U) Negative NEGATIVE [facility] Work Phone: Ketones Ql (U) Negative NEGATIVE [facility] Work Phone: Leukocyte esterase Test strip Ql (U) SMALL (1+) Abnormal NEGATIVE [facility] Work Phone: pH (U) 5.0 [pH] 5.0 - 8.0 [facility] Work Phone: Protein (U) [Mass/Vol] Negative NEGATIVE [facility] Work Phone: RBC (U) [#/Vol] MODERATE(2+) Abnormal NEGATIVE [facility] Work Phone: Specific gravity (U) [Rel density] 1.009 1 See Below [facility] Work Phone: Comment on above: Reference Range: 1.0 05 - 1.035 Urinalysis Negative NEGATIVE [facility] Work Phone: Comment on above: CUTOFF LEVEL: 1 NG/M L Urinalysis <2.0 0.0 - 1.9 -[facility] Work Phone: Urinalysis CLEAR CLEAR [facility] Work Phone: Urinalysis, Microscopicon Urinalysis, Microscopic 1+ -[facility] Work Phone: Urinalysis, Microscopic 1 {/HPF} 0-5 -[facility] Work Phone: Urinalysis, Microscopic 2 {/HPF} 0-5 [facility] Work Phone: CHIEF OF PLANNING - Office Visiton 07-12 CHIEF OF PLANNING - Office Visit Diagnoses/Problems Assessed Post-menopausal bleeding (627.1) (N95.0) Orders Ultrasound Pelvis Transvaginal; Status:Hold For - Scheduling; Requested for:09Aug2021; Radiologist to Determine Optimal Study : Y What are the patient's signs and symptoms? 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 pt has not bleed since then, she didn?t have intercourse again either to make sure that is what it was from. pt is post- paul since 2003 no other complaints today. History of Present IllnessReviewed options for management ultrasound hysteroscopy1 1 Amended By: David Spaulding; Aug 23 2021 1:19 PM EST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) Generalized anxiety disorder (300.02) (F41.1) GERD without esophagitis (530.81) (K21.9) Headache (784.0) (R51.9) Hyperlipidemia (272.4) (E78.5) Menieres disease (386.00) (H81.09) New daily persistent headache (339.42) (G44.52) Nicotine dependence (305.1) (F17.200) Osteoporosis, unspecified osteoporosis type, unspecified pathological fracture presence (733.00) (M81.0) Pelvic pain in female (625.9) (R10.2) Post-traumatic headache, not intractable, unspecified chronicity pattern (339.20) (G44.309) Potassium deficiency (276.8) (E87.6) 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) (G51.0) Screening for malignant neoplasm of colon (V76.51) (Z12.11) Seborrheic keratoses (702.19) (L82.1) Skin lesion of left leg (709.9) (L98.9) Syncope (780.2) (R55) Past Medical History Problems History of Elevated triglycerides with high cholesterol (272.2) (E78.2) History of Health care maintenance (V70.0) (Z00.00) History of arthritis (V13.4) (Z87.39) History of chest pain (V13.89) (Z87.898) History of depression (V11.8) (Z86.59) History of peptic ulcer (V12.71) (Z87.11) History of urinary tract infection (V13.02) (Z87.440) History of vitamin D deficiency (V12.1) (Z86.39) History of Skin lesion (709.9) (L98.9) Surgical History Problems History of Appendectomy History of Knee Surgery Right History of Rotator Cuff Repair History of Tubal ligation Family History Mother Family history of cardiac disorder (V17.49) (Z82.49) Family history of cardiac pacemaker (V17.49) (Z82.49) Family history of diabetes mellitus (V18.0) (Z83.3) Father Family history of Mesothelioma Sister Family history of cardiac pacemaker (V17.49) (Z82.49) Family history of diabetes mellitus (V18.0) (Z83.3) Brother Family history of malignant neoplasm of brain (V16.8) (Z80.8) Maternal Grandmother Family history of lung cancer (V16.1) (Z80.1) Family history of malignant neoplasm of ovary (V16.41) (Z80.41) Paternal Grandmother Family history of lung cancer (V16.1) (Z80.1) Paternal Grandfather Family history of lung cancer (V16.1) (Z80.1) Other Family history of osteoporosis (V17.81) (Z82.62) Social History Problems Current every day smoker (305.1) (F17.200) Daily caffeine consumption Disabled Does not use illicit drugs (V49.89) (Z78.9) No alcohol use Allergies Medication No Known Drug Allergies Recorded By: Shweta Lindsay; 04/15/2015 3:21:57 PM Current Meds Medication NameInstruction Alendronate Sodium 70 MG Oral TabletTAKE 1 TABLET BY MOUTH 1 TIME WEEKLY Atorvastatin Calcium 20 MG Oral TabletTAKE 1 TABLET BY MOUTH EVERY DAY Combivent Respimat 20-100 MCG/ACT Inhalation Aerosol SolutionINHALE 1 PUFF BY MOUTH FOUR TIMES DAILY. MAXIMUM OF 6 PUFFS IN 24 HOURS Meclizine HCl - 25 MG Oral TabletTAKE 1 TABLET 3 times daily PRN Pantoprazole Sodium 40 MG Oral Tablet Delayed ReleaseTAKE 1 TABLET BY MOUTH EVERY DAY Sertraline HCl - 100 MG Oral Tablet1 and 1/2 tablets daily. Ventolin HFA 108 (90 Base) MCG/ACT Inhalation Aerosol SolutionINHALE 1 TO 2 PUFFS EVERY 4 TO 6 HOURS NEEDED. Vitals Vital Signs Recorded: 09Aug2021 12:12PM Sjuuwqytkqs70 F Sjbfdvrk925 Scbcnttjn85 Height4 ft 10 in Rbyvdf900 lb 2 oz BMI Bwqvddqgbj28.85 kg/m2 BSA Calculated1.43 Physical Exam Physical examination: General: No distress Neck: No masses Respiratory: No respiratory (more content not included)... Normal [employer] ACUTE TOXICOLOGY PANEL, NETTE Starkey 04-01-2021 Acetaminophen [Mass/Vol] ug/mL See Below [facility] 125 Work Phone: Comment on above: Reference Range: 10. 0 - 30.0 Ethanol [Mass/Vol] mg/dL [facility] Work Phone: Comment on above: FOR MEDICAL USE ONLY . .REF VALUES <10 Salicylates [Mass/Vol] mg/dL 4 - 20 [facility] Work Phone: CT Head without Contraston 0 04-01-2021 CT Head limited WO contrast Normal [facility] Work Phone: Calcium, Ionized Levelon Calcium, Ionized Level 1.22 mmol/L See Below [facility] Work Phone: Comment on above: Reference Range: 1.1 0 - 1.33 Complete Blood Count + Diffe rentialon 04-01-2021 Basophils/100 WBC (Bld) 0.6 % 0.0 - 2.0 [facility] Work Phone: Erythrocyte distribution width (RBC) [Ratio] 11.9 % See Below [facility] Work Phone: Comment on above: Reference Range: 11. 5 - 14.5 Hematocrit (Bld) [Volume fraction] 40.1 % See Below [facility] Work Phone: Comment on above: Reference Range: 36. 0 - 46.0 Hemoglobin (Bld) [Mass/Vol] 13.0 g/dL See Below [facility] Work Phone: Comment on above: Reference Range: 12. 0 - 16.0 Lymphocytes/100 WBC (Bld) 26.9 % See Below [facility] Work Phone: Comment on above: Reference Range: 13. 0 - 44.0 MCHC (RBC) [Mass/Vol] 32.4 g/dL See Below [facility] 125 Work Phone: Comment on above: Reference Range: 32. 0 - 36.0 MCV (RBC) [Entitic vol] 102 fL above high threshold 80 - 100 [facility] 125 Work Phone: Monocytes/100 WBC (Bld) 6.6 % 2.0 - 10.0 [facility] 125 Work Phone: Neutrophils/100 WBC (Bld) 63.5 % See Below [facility] 125 Work Phone: Comment on above: Reference Range: 40. 0 - 80.0 Platelets (Bld) [#/Vol] 233 10*3/uL 150 - 450 [facility] 125 Work Phone: RBC (Bld) [#/Vol] 3.95 {x10E12/L} below low threshold See Below [facility] 125 Work Phone: Comment on above: Reference Range: 4.0 0 - 5.20 WBC (Bld) [#/Vol] 6.3 10*3/uL 4.4 - 11.3 [facility] 125 Work Phone: Complete Blood Count + Differential 0.04 {x10E9/L} See Below [facility] 125 Work Phone: Comment on above: Reference Range: 0.0 0 - 0.10 Complete Blood Count + Differential 0.12 {x10E9/L} See Below [facility] 125 Work Phone: Comment on above: Reference Range: 0.0 0 - 0.70 Complete Blood Count + Differential 0.41 {x10E9/L} See Below [facility] 125 Work Phone: Comment on above: Reference Range: 0.1 0 - 1.00 Complete Blood Count + Differential 1.68 {x10E9/L} See Below [place] [address] Work Phone: Comment on above: Reference Range: 1.2 0 - 4.80 Complete Blood Count + Differential 3.97 {x10E9/L} See Below [place] [address] Work Phone: Comment on above: Reference Range: 1.2 0 - 7.70 Complete Blood Count + Differential 1.9 % 0.0 - 6.0 [place] [address] Work Phone: Complete Blood Count + Differential 0.5 % 0.0 - 0.9 [place] [address] Work Phone: Comment on above: Immature Granulocyte Count (IG) includes promyelocytes, myelocytes and metamyelocytes but does not include bands. Percent differential counts (%) should be interpreted in the context of the absolute cell counts (cells/L). Coronavirus 2019 RNA by PCR, Screening Asymptomticon 04-01-2021 Coronavirus 2019 RNA by PCR, Screening Asymptomtic Not detected Normal See Below [place] [address] Work Phone: Comment on above: SOURCE: Nasal, Nasop haryngealReference Range: Not Detected.This test has received FDA Emergency Use Authorization (EUA) and has been verified by [facility]. This test is only authorized for the duration of time that circumstances exist to justify the authorization of the emergency use of in vitro diagnostic tests for the detection of SARS-CoV-2 virus and/or diagnosis of COVID-19 infection under section 564(b)(1) of the Act, 21 U.S.C. 360bbb-3(b)(1), unless the authorization is terminated or revoked sooner. [facility] is certified under CLIA-88 as qualified to perform high complexity testing. Testing is performed in the [facility] laboratory located at [address] [place] [address].SARS-CoV-2/Flu/RSV Multiplex Test: Fact sheet for providers: https://www.fda.gov/media/595438/downloadFact sheet for patients: https://www.fda.gov/media/018396/download Laboratory - Chemistry and C hemistry - challengeon 04-01-2021 CO2 (Bld) [Partial pressure] 44 mm[Hg] above high threshold 38 - 42 [facility] 125 Work Phone: HCO3 (Bld) [Moles/Vol] 25.4 mmol/L See Below [facility] 125 Work Phone: Comment on above: Reference Range: 22. 0 - 26.0 Lactate [Moles/Vol] 0.8 mmol/L 0.4 - 2.0 [facility] 125 Work Phone: Oxygen (Bld) [Partial pressure] 81 mm[Hg] below low threshold 85 - 95 [facility] 125 Work Phone: pH (Bld) 7.37 [pH] below low threshold See Below [facility] 125 Work Phone: Comment on above: Reference Range: 7.3 8 - 7.42 Albumin BCP dye [Mass/Vol] 4.0 g/dL 3.4 - 5.0 [facility] 125 Work Phone: ALP [Catalytic activity/Vol] 56 U/L 33 - 136 [facility] 125 Work Phone: ALT With P-5'-P [Catalytic activity/Vol] 11 U/L 7 - 45 [facility] 125 Work Phone: Comment on above: Patients treated wit h Sulfasalazine may generate falsely decreased results for ALT. Anion gap [Moles/Vol] 8 mmol/L below low threshold 10 - 20 [facility] 125 Work Phone: AST With P-5'-P [Catalytic activity/Vol] 18 U/L 9 - 39 [facility] [facility] Work Phone: Bilirubin [Mass/Vol] 0.3 mg/dL 0.0 - 1.2 [facility] [facility] Work Phone: Calcium [Mass/Vol] 9.1 mg/dL 8.6 - 10.3 [facility] 125 Work Phone: Chloride [Moles/Vol] 107 mmol/L 98 - 107 [facility] 125 Work Phone: CO2 [Moles/Vol] 30 mmol/L 21 - 32 [facility] 125 Work Phone: Creatinine [Mass/Vol] 0.77 mg/dL See Below - [facility] 125 Work Phone: Comment on above: Reference Range: 0.5 0 - 1.05 Glucose [Mass/Vol] 78 mg/dL 74 - 99 -[facility] 125 Work Phone: Potassium [Moles/Vol] 4.1 mmol/L 3.5 - 5.3 - [facility] 125 Work Phone: Protein [Mass/Vol] 6.5 g/dL 6.4 - 8.2 -[facility] 125 Work Phone: Sodium [Moles/Vol] 141 mmol/L 136 - 145 [facility] 125 Work Phone: Urea nitrogen [Mass/Vol] 12 mg/dL 6 - 23 [facility] 125 Work Phone: Laboratory - Drug toxicology on 04-01-2021 Amphetamines Screen Ql (U) Negative NEGATIVE [facility] 125 Work Phone: Comment on above: CUTOFF LEVEL: 500 NG /ML Cross-reactivity has been reported with high concentrations of the following drugs: buproprion, chloroquine, chlorpromazine, ephedrine, mephentermine, fenfluramine, phentermine, phenylpropanolamine, pseudoephedrine, and propranolol. Barbiturates Screen Ql (U) Negative NEGATIVE [facility] 125 Work Phone: Comment on above: CUTOFF LEVEL: 200 NG /ML Benzodiazepines Ql (U) Positive Abnormal NEGATIVE [facility] 125 Work Phone: Comment on above: CUTOFF LEVEL: 200 NG /ML Benzoylecgonine Screen Ql (U) Negative NEGATIVE [facility] 125 Work Phone: Comment on above: CUTOFF LEVEL: 150 NG /ML Cannabinoids Screen Ql (U) Positive Abnormal NEGATIVE [facility] 125 Work Phone: Comment on above: CUTOFF LEVEL: 50 NG/ ML Methadone Screen Ql (U) Negative NEGATIVE [facility] 125 Work Phone: Comment on above: CUTOFF LEVEL: 150 NG /ML The metabolite K-mzlth-vtoxzbwnvszrpw (LAAM) is not detected by this method in concentrations that would be found in the urine of patients on LAAM therapy. Opiates Screen Ql (U) Negative NEGATIVE [facility] 125 Work Phone: Comment on above: CUTOFF LEVEL: 300 NG /ML The opiate screen does not detect fentanyl, meperidine, or tramadol. Oxycodone is not consistently detected (refer to Oxycodone Screen, Urine result). oxyCODONE+oxyMORphone Screen Ql (U) Negative NEGATIVE [facility] 125 Work Phone: Comment on above: CUTOFF LEVEL: 100 NG /ML This test will accurately detect both oxycodone and oxymorphone. Phencyclidine Ql (U) Negative NEGATIVE [facility] 125 Work Phone: Comment on above: CUTOFF LEVEL: 25 NG/ ML Cross-reactivity has been reported with dextromethorphan. No Panel Informationon 04-01 Negative NEGATIVE [facility] 125 Work Phone: Comment on above: CUTOFF LEVEL: 1 NG/M L SEE BELOW [facility] 125 Work Phone: Comment on above: Drug screen results are presumptive and should not be used to assess compliance with prescribed medication. Contact the performing [facility] laboratory to add-on definitive confirmatory testing if clinically indicated. .Toxicology screening results are reported qualitatively. The concentration must be greater than or equal to the cutoff to be reported as positive. The concentration at which the screening test can detect an individual drug or metabolite varies. The absence of expected drug(s) and/or drug metabolite(s) may indicate non-compliance, inappropriate timing of specimen collection relative to drug administration, poor drug absorption, diluted/adulterated urine, or limitations of testing. For medical purposes only; not valid for forensic use. .Interpretive questions should be directed to the laboratory medical directors. Arterial patency Wrist artery --pre arterial puncture YES [facility] 125 Work Phone: LRA [facility] 125 Work Phone: -0.2 mmol/L -2.0 - 3.0 [facility] 125 Work Phone: 98 % 94 - 100 [facility] 125 Work Phone: 37.0 {degrees_C} [facility] gina [facility] 125 Work Phone: Comment on above: NOTE: PATIENT RESULT S ARE NOT CORRECTED FOR TEMPERATURE. [email or web address] [email or web address] ?RetrieveTestByDateTime?P utezgfFU=[id number]&Date=2 09-15-2020&Time=10%3a59%3a 26%3a00&TestType=ECG&Site =11&OutputType=PDF&Ext=PD F [facility] 125 Work Phone: Normal sinus rhythm [facility] 125 Work Phone: Normal [facility] 125 Work Phone: [phone] 1 [facility] 125 Work Phone: [phone] [facility] 125 Work Phone: 179 1 [facility] 125 Work Phone: 128 1 [facility] 125 Work Phone: 221 1 [facility] 125 Work Phone: 10 1 [facility] 125 Work Phone: 46 1 [facility] 125 Work Phone: 50 1 [facility] 125 Work Phone: 59 1 [facility] 125 Work Phone: 82 1 [facility] 125 Work Phone: 186 1 [facility] 125 Work Phone: 60 1 [facility] 125 Work Phone: >60 >60 [facility] 125 Work Phone: Comment on above: CALCULATIONS OF VIVIANA MATED GFR ARE PERFORMED USING THE MDRD STUDY EQUATION FOR THE IDMS-TRACEABLE CREATININE METHODS. CLIN CHEM 2007;53:766-72 Radiologyon 09-23-2021 XR Chest Single view Normal [facility] 125 Work Phone: Troponin I, Serumon 04-01-20 21 Troponin I.cardiac [Mass/Vol] ng/mL See Below [facility] 125 Work Phone: Comment on above: Reference Range: 0.0 0 - 0.03LESS THAN 0.04 NG/ML: NEGATIVEREPEAT TESTING IN THREE TO SIX HOURSIF CLINICALLY INDICATED.0.04 - 0.5 NG/ML: CONSISTENT WITH POSSIBLECARDIAC DAMAGE AND POSSIBLE INCREASEDCLINICAL RISK.SERIAL MEASUREMENTS MAY HELP ASSESS EXTENT OFMYOCARDIAL DAMAGE.>0.5 NG/ML: CONSISTENT WITH CARDIAC DAMAGE,INCREASED CLINICAL RISK AND MYOCARDIALINFARCTION. SERIAL MEASUREMENTS MAY HELPASSESS EXTENT OF MYOCARDIAL DAMAGE..Note: Troponin I testing is performed using different testing methodology at [facility]3] than at other [facility]. Direct result comparisons should only be made within the same method. Otheron 04-01-2020 XR Chest 2 views Interpreted by: JOLENE WATKINS04/02/20 15:48MRN: [id number] Name: ALICIA PATTERSON STUDY:TH CHEST 2 VIEW PA AND LAT; 04/01/2020 1:50 pm INDICATION:cough. COMPARISON:02/27/2020 ORDERING CLINICIAN:KYREE YOUNG FINDINGS:CARDIOMEDIASTINA L SILHOUETTE:Cardiomediasti nal silhouette is normal in size and configuration.There is a small hiatal hernia containing gas filled stomach. LUNGS:There is bandlike scarring in the left mid lung.There is no active infiltrate, pleural fluid or congestion.There is a benign calcified right upper lobe granuloma. ABDOMEN:No remarkable upper abdominal findings. BONES:No acute osseous changes. IMPRESSION:No acute cardiopulmonary process.Electronically signed by: GURPREET WATKINS 04/02/20 15:48 Normal [facility] 125 Work Phone: Hematologyon 02-27-2020 Hematocrit (Bld) [Volume fraction] 41.2 % See Below [facility] 125 Work Phone: Comment on above: Reference Range: 36. 0 - 46.0 Hemoglobin (Bld) [Mass/Vol] 14.0 g/dL See Below -[facility] 125 Work Phone: Comment on above: Reference Range: 12. 0 - 16.0 MCV (RBC) [Entitic vol] 95 fL 80 - 100 [facility] Work Phone: Platelets (Bld) [#/Vol] 234 {x10E9/L} 150 - 450 -[facility] 125 Work Phone: RBC (Bld) [#/Vol] 4.33 {x10E12/L} See Below -[facility] 125 Work Phone: Comment on above: Reference Range: 4.0 0 - 5.20 WBC (Bld) [#/Vol] 6.0 {x10E9/L} 4.4 - 11.3 -[facility] 125 Work Phone: Lipid Panelon 02-27-2020 Cholesterol [Mass/Vol] 202 mg/dL above hig h threshold 0 - 199 -[facility] 125 Work Phone: Comment on above: . AGE DESIRABLE BORD DOMINGA HIGH HIGH 0-19 Y 0 - 169 170 - 199 >/= 200 20-24 Y 0 - 189 190 - 224 >/= 225 >24 Y 0 - 199 200 - 239 >/= 240 All ranges are based on fasting samples. Specific therapeutic targets will vary based on patient-specific cardiac risk.. Pediatric guidelines reference:Pediatrics 2011, 128(S5). Adult guidelines reference: NCEP ATPIII Guidelines, ROSALINE 2001, 258:2486-97. Venipuncture immediately after or during the administration of Metamizole may lead to falsely low results. Testing should be performed immediately prior to Metamizole dosing. Cholesterol in HDL [Mass/Vol] 34.0 mg/dL Abnormal -[facility] 125 Work Phone: Comment on above: . AGE VERY LOW LOW N ORMAL HIGH 0-19 Y < 35 < 40 40-45 ---- 20-24 Y ---- < 40 >45 ---- >24 Y ---- < 40 40-60 >60. Cholesterol in LDL [Mass/Vol] 120 mg/dL above high threshold 0 - 99 [facility] Work Phone: Comment on above: . NEAR BORD AGE ANASTACIA RABLE OPTIMAL HIGH HIGH VERY HIGH 0-19 Y 0 - 109 --- 110-129 >/= 130 ---- 20-24 Y 0 - 119 --- 120-159 >/= 160 ---- >24 Y 0 - 99 100-129 130-159 160-189 >/=190. Cholesterol non HDL [Mass/Vol] 168 mg/dL [facility] Work Phone: Comment on above: AGE DESIRABLE BORDER LINE HIGH HIGH VERY HIGH 0-19 Y 0 - 119 120 - 144 >/= 145 >/= 160 20-24 Y 0 - 149 150 - 189 >/= 190 ---- >24 Y 30 MG/DL ABOVE LDL CHOLESTEROL GOAL. Cholesterol.total/Chol esterol in HDL [Mass ratio] 5.9 {ratio} Abnormal [facility] Work Phone: Comment on above: REF VALUESDESIRABLE < 3.4HIGH RISK > 5.0 Triglyceride [Mass/Vol] 238 mg/dL above high threshold 0 - 149 [facility] Work Phone: Comment on above: . AGE DESIRABLE BORD DOMINGA HIGH HIGH VERY HIGH 0 D-90 D 19 - 174 ---- ---- ----91 D- 9 Y 0 - 74 75 - 99 >/= 100 ---- 10-19 Y 0 - 89 90 - 129 >/= 130 ---- 20-24 Y 0 - 114 115 - 149 >/= 150 ---- >24 Y 0 - 149 150 - 199 200- 499 >/= 500. Venipuncture immediately after or during the administration of Metamizole may lead to falsely low results. Testing should be performed immediately prior to Metamizole dosing. Lipid Panel 48 mg/dL above high threshold 0 - 40 -[facility] Work Phone: Metabolic Panelon 02-27-2020 ALP [Catalytic activity/Vol] 56 U/L 33 - 136 -[facility] Work Phone: Anion gap [Moles/Vol] 11 mmol/L 10 - 20 - [facility] Work Phone: Bilirubin [Mass/Vol] 0.4 mg/dL 0.0 - 1.2 -[facility] Work Phone: Calcium [Mass/Vol] 9.1 mg/dL 8.6 - 10.3 -[facility] Work Phone: Chloride [Moles/Vol] 105 mmol/L 98 - 107 -[facility] Work Phone: CO2 [Moles/Vol] 29 mmol/L 21 - 32 -[facility] Work Phone: Creatinine [Mass/Vol] 0.83 mg/dL See Below [facility] Work Phone: Comment on above: Reference Range: 0.5 0 - 1.05 Glucose [Mass/Vol] 97 mg/dL 74 - 99 -[facility] Work Phone: Potassium [Moles/Vol] 3.4 mmol/L below low threshold 3.5 - 5.3 -[facility] Work Phone: Protein [Mass/Vol] 6.7 g/dL 6.4 - 8.2 -[facility] Work Phone: Sodium [Moles/Vol] 142 mmol/L 136 - 145 [facility] 125 Work Phone: Urea nitrogen [Mass/Vol] 11 mg/dL 6 - 23 [facility] Work Phone: Otheron 02-27-2020 XR Chest 2 views Please click on the link to view the study images Normal [facility] Work Phone: Please click on the link to view the study images Normal [facility] 125 Work Phone: Albumin BCP dye [Mass/Vol] 4.1 g/dL 3.4 - 5.0 [facility] Work Phone: ALT With P-5'-P [Catalytic activity/Vol] 16 U/L 7 - 45 [place] [address] Work Phone: Comment on above: Patients treated wit Sulfasalazine may generate falsely decreased results for ALT. AST With P-5'-P [Catalytic activity/Vol] 21 U/L 9 - 39 [facility] Work Phone: Erythrocyte distribution width (RBC) [Ratio] 12.4 % See Below [facility] Work Phone: Comment on above: Reference Range: 11. 5 - 14.5 MCHC (RBC) [Mass/Vol] 34.0 g/dL See Below Replaced by [facility] Work Phone: Comment on above: Reference Range: 32. 0 - 36.0 >60 >60 [place] [address] Work Phone: Comment on above: CALCULATIONS OF VIVIANA MATED GFR ARE PERFORMED USING THE MDRD STUDY EQUATION FOR THE IDMS-TRACEABLE CREATININE METHODS. CLIN CHEM 2007;[id number] Thyroidon 02-27-2020 TSH Qn 2.56 {mIU/L} See Below [facility] Work Phone: Comment on above: Reference Range: 0.4 4 - 3.98 TSH testing is performed using different testing methodology at [facility]3] than at other [facility]. Direct result comparisons should only be made within the same method. Basic Metabolic Panelon 04-09 Anion gap [Moles/Vol] 14 mmol/L [place], [place] Calcium [Mass/Vol] 9.0 mg/dL 8.5 - 9.9 mg/dL [place] Chloride [Moles/Vol] 100 mmol/L [place] CO2 [Moles/Vol] 27 mmol/L [place] Creatinine [Mass/Vol] 0.69 mg/dL 0.5 - 0.9 mg/dL [place] GFR >60.0 >60 [place] Comment on above: >60 mL/min/1.73m2 EG FR, calc. for ages 18 and older using the MDRD formula (not corrected for weight), is valid for stable renal function. GFR Non- >60.0 >60 [place] Comment on above: >60 mL/min/1.73m2 EG FR, calc. for ages 18 and older using the MDRD formula (not corrected for weight), is valid for stable renal function. Glucose [Mass/Vol] 133 mg/dL High 70 - 99 mg/dL [place] Interpretation and review of laboratory results Abnormal [place] Potassium [Moles/Vol] 3.8 mmol/L [place] Sodium [Moles/Vol] 141 mmol/L [place] Urea nitrogen [Mass/Vol] 13 mg/dL 8 - 23 mg/dL [place] CBC Auto Differentialon 04-09 Basophils (Bld) [#/Vol] 0.1 10*3/uL 0 - 0.2 K/uL [place] Basophils/100 WBC (Bld) 0.7 % [place] Eosinophils (Bld) [#/Vol] 0.1 10*3/uL 0 - 0.7 K/uL [place] Eosinophils/100 WBC (Bld) 1.2 % [place] Erythrocyte distribution width (RBC) [Ratio] 12.9 % 11.5 - 14.5 % [place] Hematocrit (Bld) [Volume fraction] 40.1 % 37 - 47 % [place] Hemoglobin (Bld) [Mass/Vol] 13.6 g/dL 12 - 16 g/dL [place] Interpretation and review of laboratory results Abnormal [place] Lymphocytes (Bld) [#/Vol] 2.3 10*3/uL 1 - 4.8 K/uL [place] Lymphocytes/100 WBC (Bld) 32.1 % [place] MCH (RBC) [Entitic mass] 32.8 pg High 27 - 31.3 pg [place] MCHC (RBC) [Mass/Vol] 33.8 % 33 - 37 % [place] MCV (RBC) [Entitic vol] 97.1 fL 82 - 100 fL [place] Monocytes (Bld) [#/Vol] 0.2 10*3/uL 0.2 - 0.8 K/uL [place] Monocytes/100 WBC (Bld) 3.4 % [place] Neutrophils Absolute 4.6 K/uL 1.4 - 6 .5 K/uL [place] Neutrophils/100 WBC (Bld) 62.6 % [place] Platelets (Bld) [#/Vol] 248 10*3/uL 130 - 400 K/uL [place] RBC (Bld) [#/Vol] 4.13 10*6/uL [place] WBC (Bld) [#/Vol] 7.3 10*3/uL 4.8 - 10.8 K/uL [place] Troponinon 04-19-2019 Troponin I.cardiac [Mass/Vol] ng/mL 0 - 0.01 ng/mL [place] Comment on above: Methodology by Colleen Mcmillan CHEST 2 VIEWon 08-09-2018 CHEST 2 VIEW DATE OF EXAM: Aug 09 2018 2:44PM CLINICAL HISTORY/ Patient Name: ALICIA PATTERSON STUDY: CHEST 2 VIEW; 08/09/2018 2:44 pm INDICATION: nicotine dependence. COMPARISON: 07/25/2017 ACCESSION NUMBER(S): [id number] ORDERING CLINICIAN: KYREE YOUNG TECHNIQUE: 2 radiographs of the chest were performed. FINDINGS: There is a small to moderate size hiatal hernia which is unchanged. A 7 mm calcified granuloma overlies the right upper lobe and is stable from 07/25/2017. The heart is of normal size and contour. The pulmonary vessels are within normal limits. The lungs and pleural spaces are otherwise clear. There is no pneumothorax. The osseous structures are demineralized. CONCLUSION: IMPRESSION: No sign of acute cardiopulmonary disease or interval change from 07/25/2017 as described above. Normal [facility] Healthcare Pathology ([facility])on 08-09-2018 Pathology ([facility]) FINAL GYNECOLOGIC CYTOLOGY REPORT [id number] SPECIMEN ADEQUACY Satisfactory for Evaluation. Endocervical cells/transformation zone component present. GENERAL CATEGORIZATION Negative for Intraepithelial Lesion or Malignancy CLINICAL HISTORY Comment: LMP: 2004 SPECIMEN (A) SCREENING CERVICAL/ENDOCERVICAL THIN PREP VIAL Performed at [facility], [address] [place] [address] Screened by: Signed Out by: MEHDI DIXON Hospice Coordinator Reported: 08/13/2018 Normal [facility] Comment on above: Performed By: #### G YN #### [facility] [address] [place] [address] DEXA STUDY AXIAL SKELETONon 01-04-2018 DEXA STUDY AXIAL SKELETON DATE OF EXAM: Jan 04 2018 10:36AM CLINICAL HISTORY/ Patient Name: ALICIA PATTERSON STUDY: DEXA STUDY AXIAL SKELETON; 01/04/2018 10:36 am INDICATION: osteoporosis. Evaluate for osteopenia/osteoporosis, ACCESSION NUMBER(S): [id number] ORDERING CLINICIAN: KYREE YOUNG FINDINGS: Standard measurements were obtained utilizing an [employer] X-ray Absorptiometry bone densitometer. Data obtained includes planar bone density measurements over the left and right hip and lumbar spine. Comparison of measured data and standardized mean data for a young adult population (when peak bone mass occurs) results in a T score. This represents the number of standard deviations above or below the mean of a young adult population. Comparison of measured data to standards from an age-adjusted population similarly yields a Z score. Left femoral neck Bone density: 0.73 g/cm2 T score: -2.2 Z Score: -0.8 Right femoral neck Bone density: 0.733 g/cm2 T score: -2.2 Z score: -0.8 Lumbar Spine (L1-4) Bone density: 1.114 g/cm2 T Score: -0.7 Z Score: 0.8 World Health Organization (WHO) criteria defines normal bone density as that which is less than 1 standard deviation below the mean of a young adult population. Osteopenia is defined as a measured bone density that is between 1 and 2.5 standard deviations below the mean of a young adult population. Osteoporosis is defined as a measured bone density that is greater than or equal to 2.5 standard deviations below the mean of a young adult population. CONCLUSION: IMPRESSION: There is a discrepancy between the femoral neck and lumbar spine bone mineral density measurements. The lumbar spine bone mineral density measurements are often falsely elevated due to posterior facet and discogenic degenerative changes. The femoral neck is more sensitive in evaluation of osteopenia and osteoporosis and will be emphasized on this study. According to World Health Organization criteria, bone mineral density of the left and right femoral neck is osteopenic. The patient is at increased risk for fracture. 10 year fracture risk for major osteoporotic fracture is 18.3 %. 10 year fracture risk for hip fracture 4.8 % according to the World Health Organization FRAX- fracture risk assessment tool. Normal [facility] Vital Signs Date Time Vital Sign Value Performing Clinician Faci lity 12-04-2024 14:21-0400 Body height 144.[address] David Syed DO Work Phone: [facility] 12-04-2024 14:21-0400 Body mass index (BMI) [Ratio] 27.4 kg/m2 Dr. David Syed DO Work Phone: [facility] 12-04-2024 14:21-040 Body temperature 97.6 [degF] Dr. David Syed DO Work Phone: [facility] 12-04-2024 14:21-0400 Body weight 57.[address] David Syed DO Work Phone: [facility] 12-04-2024 14:21-0400 Diastolic blood pressure 60 mm[Hg] Dr. David Syed DO Work Phone: [facility] 12-04-2024 14:21-0400 Heart rate 74 /min Dr. David Syed DO Work Phone: [facility] 12-04-2024 14:21-0400 Respiratory rate 18 /min Dr. David Syed DO Work Phone: [facility] 12-04-2024 14:21-0400 SaO2% (BldA) [Mass fraction] 95 % Dr. David Syed DO Work Phone: [facility] 12-04-2024 14:21-0400 Systolic blood pressure 104 mm[Hg] Dr. David Syed DO Work Phone: [facility] 09-25-2024 15:14-0400 Body height 144.[address] David Syed DO Work Phone: [facility] 09-25-2024 15:14-0400 Body mass index (BMI) [Ratio] 27.6 kg/m2 Dr. David Syed DO Work Phone: [facility] 09-25-2024 15:14-0400 Body temperature 97.7 [degF] Dr. David Syed DO Work Phone: [facility] 09-25-2024 15:14-0400 Body weight 58.[address] David Syed DO Work Phone: [facility] 09-25-2024 15:14-0400 Diastolic blood pressure 64 mm[Hg] Dr. David Syed DO Work Phone: [facility] 09-25-2024 15:14-0400 Heart rate 91 /min Dr. David Syed DO Work Phone: [facility] 09-25-2024 15:14-0400 Respiratory rate 18 /min Dr. David Syed DO Work Phone: [facility] 09-25-2024 15:14-0400 SaO2% (BldA) [Mass fraction] 94 % Dr. David Syed DO Work Phone: [facility] 09-25-2024 15:14-0400 Systolic blood pressure 122 mm[Hg] Dr. David Syed DO Work Phone: [facility] 08-28-2024 13:51-0500 Body mass index (BMI) [Ratio] 27.3 kg/m2 Dr. David Syed DO Work Phone: [facility] 08-28-2024 13:51-0500 Body temperature 96.2 [degF] Dr. David Syed DO Work Phone: [facility] 08-28-2024 13:51-0500 Body weight 57.[address] David Syed DO Work Phone: [facility] 08-28-2024 13:51-0500 Diastolic blood pressure 58 mm[Hg] Dr. David Syed DO Work Phone: [facility] 08-28-2024 13:51-0500 Heart rate 82 /min Dr. David Syed DO Work Phone: [facility] 08-28-2024 13:51-0500 Respiratory rate 16 /min Dr. David Syed DO Work Phone: [facility] 08-28-2024 13:51-0500 SaO2% (BldA) [Mass fraction] 98 % Dr. David Syed DO Work Phone: [facility] 08-28-2024 13:51-0500 Systolic blood pressure 118 mm[Hg] Dr. David Syed DO Work Phone: [facility] 07-19-2022 13:55-0500 Diastolic blood pressure 70 mm[Hg] Kyree Young Work Phone: [place] [address] Work Phone: 07-19-2022 13:55-0500 Systolic blood pressure 108 mm[Hg] Kyree Velásqueznath Work Phone: [facility] Work Phone: 07-19-2022 13:51-0500 Body height 147.32 cm Kaisera [facility] [address] [facility] Work Phone: [facility] Work Phone: 07-19-2022 13:51-0500 Body mass index (BMI) [Ratio] 23.62 kg/m2 [facility] Work Phone: [facility] Work Phone: 07-19-2022 13:51-0500 Body surface area Derived from formula 1.43 m2 [facility] Work Phone: [facility] Work Phone: 07-19-2022 13:51-0500 Body temperature 98.7 [degF] [facility] [address] [facility] Work Phone: [facility] Work Phone: 07-19-2022 13:51-0500 Body weight 51.26 kg [facility] Work Phone: [facility] Work Phone: 06-13-2022 13:29-0500 Body mass index (BMI) [Ratio] 23.62 kg/m2 [facility] Work Phone: [facility] Work Phone: 06-13-2022 13:29-0500 Body surface area Derived from formula 1.43 m2 [facility] Work Phone: [facility] Work Phone: 06-13-2022 13:29-0500 Body weight 51.26 kg [facility] Work Phone: [facility] Work Phone: 06-13-2022 13:29-0500 Diastolic blood pressure 70 mm[Hg] [facility] Work [facility]: [facility] Work Phone: 06-13-2022 13:29-0500 Systolic blood pressure 120 mm[Hg] [facility] Work Phone: [facility] Work Phone: 06-13-2022 13:29-0500 0 1 [facility] Work Phone: [facility] Work Phone: Comment on above: [employer] 03-09-2022 23:35-0400 SaO2% (BldA) [Mass fraction] 98 % Lana Bravo DO [facility] 03-09-2022 20:39-0400 Body height 144.8 cm Lana Bravo DO [facility] 03-09-2022 20:39-0400 Body mass index (BMI) [Ratio] 23.8 kg/m2 Lana Bravo DO [facility] 03-09-2022 20:39-0400 Body temperature 97.3 [degF] Lana Bravo DO [facility] 03-09-2022 20:39-0400 Body weight 49.9 kg Lana Bravo DO [facility] 03-09-2022 20:39-0400 Diastolic blood pressure 80 mm[Hg] Lana Bravo DO [facility] 03-09-2022 20:39-0400 Heart rate 77 /min Lana Bravo DO [facility] 03-09-2022 20:39-0400 Respiratory rate 16 /min Lana Bravo DO [facility] 03-09-2022 20:39-0400 Systolic blood pressure 125 mm[Hg] Lana MARTE [facility] 12-20-2021 14:38-0400 Body mass index (BMI) [Ratio] 24.04 kg/m2 Bascharlemontrajappa [facility] [address] [facility] Work Phone: [facility] Work Phone: 12-20-2021 14:38-0400 Body surface area Derived from formula 1.44 m2 Bascharlemontrajaa [facility] Include [address] [facility] Work Phone: [facility] Work Phone: 12-20-2021 14:38-0400 Body weight 52.16 kg Bascharlemontrajaa [facility] Include [address] [facility] Work Phone: [facility] Work Phone: 12-20-2021 14:38-0400 Diastolic blood pressure 60 mm[Hg] Basavarajappa Counts Include [address] [facility] Work Phone: [facility] Work Phone: 12-20-2021 14:38-0400 Systolic blood pressure 120 mm[Hg] Bascharlemontrajappa Counts Include [address] [facility] Work Phone: [facility] Work Phone: 12-20-2021 14:38-0400 0 1 Basavarajappa [facility] Include [address] [facility] Work Phone: [facility] Work Phone: Comment on above: [employer] 08-14-2021 10:00-0500 Body temperature 97.7 [degF] Basavarajappa [facility] [address] [facility] Other Phone: [facility] 08-14-2021 10:00-0500 Diastolic blood pressure 61 mm[Hg] [facility]inal[facility] Other Phone: [facility] 08-14-2021 10:00-0500 Heart rate 67 /min [facility] Other Phone: [facility] 08-14-2021 10:00-0500 Respiratory rate 16 /min Basminalraedgardoppa [facility] Other Phone: [facility] 08-14-2021 10:00-0500 SaO2% (BldA) [Mass fraction] 96 % [facility] Other Phone: [facility] 08-14-2021 10:00-0500 Systolic blood pressure 82 mm[Hg] Basminalrajappa [facility] Other Phone: [facility] 08-09-2021 12:12-0500 Body height 147.32 cm Bascharlemontrajappa Counts Include [address] [facility] Work Phone: [facility] Work Phone: 08-09-2021 12:12-0500 Body mass index (BMI) [Ratio] 23.85 kg/m2 Bascharlemontrajappa [facility] Include [address] [facility] Work Phone: [facility] Work Phone: 08-09-2021 12:12-0500 Body surface area Derived from formula 1.43 m2 [facility]charlemontrajappa [facility] Work [facility]: [facility] Work Phone: 08-09-2021 12:12-0500 Body temperature 98 [degF] Basavarajappa [facility] Work Phone: [facility] Work Phone: 08-09-2021 12:12-0500 Body weight 51.77 kg Basavarajappa [facility] Include [address] [facility] Work Phone: [facility] Work Phone: 08-09-2021 12:12-0500 Diastolic blood pressure 78 mm[Hg] Bastammia Counts Include [address] [facility] Work Phone: [facility] Work Phone: 08-09-2021 12:12-0500 Systolic blood pressure 118 mm[Hg] Basmellisaa Counts Include [address] [facility] Work Phone: [facility] Work Phone: 01-27-2021 10:45-0400 Body height 147.32 cm [facility] Work Phone: [facility] Work Phone: 01-27-2021 10:45-0400 Body mass index (BMI) [Ratio] 23.83 kg/m2 [facility] Work Phone: [facility] Work Phone: 01-27-2021 10:45-0400 Body surface area Derived from formula 1.43 m2 [facility] Work Phone: [facility] Work Phone: 01-27-2021 10:45-0400 Body temperature 98 [degF] [facility] Counts Include [address] [facility] Work Phone: [facility] Work Phone: 01-27-2021 10:45-0400 Body weight 51.71 kg [facility] Work Phone: [facility] Work Phone: 01-27-2021 10:45-0400 Diastolic blood pressure 68 mm[Hg] Kyree Counts Include [address] [facility] Work Phone: [facility] Work Phone: 01-27-2021 10:45-0400 Systolic blood pressure 108 mm[Hg] Kyree Counts Include [address] [facility] Work Phone: [facility] Work Phone: 12-19-2020 20:08-0400 Body height 144.8 cm Lana [employer] Work Phone: 12-19-2020 20:08-0400 Body mass index (BMI) [Ratio] 24.45 kg/m2 Lana [facility] Work Phone: 12-19-2020 20:08-0400 Body temperature 98.2 [degF] Lana [facility] Work Phone: 12-19-2020 20:08-0400 Body weight 51.26 kg Lana [facility] Work Phone: 12-19-2020 20:08-0400 Diastolic blood pressure 93 mm[Hg] Lana [facility] Work Phone: 12-19-2020 20:08-0400 Heart rate 89 /min Lana [facility] Work Phone: 12-19-2020 20:08-0400 Respiratory rate 18 /min Lana [facility] Work Phone: 12-19-2020 20:08-0400 SaO2% (BldA) [Mass fraction] 97 % Lana [facility] Work Phone: 12-19-2020 20:08-0400 Systolic blood pressure 127 mm[Hg] Lana [facility] Work Phone: 12-03-2020 14:36-0400 Body height 147.32 cm Kaisera [facility] Work Phone: [facility] Work Phone: 12-03-2020 14:36-0400 Body mass index (BMI) [Ratio] 24.24 kg/m2 Bastammia [facility] Work Phone: [facility] Work Phone: 12-03-2020 14:36-0400 Body surface area Derived from formula 1.44 m2 [facility] Work Phone: [facility] Work Phone: 12-03-2020 14:36-0400 Body temperature 97.6 [degF] Bastammia [facility] Work Phone: [facility] Work Phone: 12-03-2020 14:36-0400 Body weight 52.62 kg Bastammia [facility] Work Phone: [facility] Work Phone: 12-03-2020 14:36-0400 Diastolic blood pressure 77 mm[Hg] Basminalrashantanua [facility] Work Phone: [facility] Work Phone: 12-03-2020 14:36-0400 Heart rate 87 /min Bastammia [facility] Work Phone: [facility] Work Phone: 12-03-2020 14:36-0400 Systolic blood pressure 115 mm[Hg] Basminalrashantanua [facility] Work Phone: [facility] Work Phone: 04-02-2020 15:39-0400 BMI (Body Mass Index) 23.41 kg/m2 Norma Pacer [facility] Work Phone: 04-02-2020 15:39-0400 Body Temperature 98.6 [degF] Norma Pacer [facility] Work Phone: 04-02-2020 15:39-0400 Body weight 50.8 kg Norma Pacer [facility] Work Phone: 04-02-2020 15:39-0400 BP Diastolic 70 mm[Hg] Norma Pacer [facility] Work Phone: 04-02-2020 15:39-0400 BP Systolic 110 mm[Hg] Norma Pacer [facility] Work Phone: 04-02-2020 15:39-0400 BSA (Body Surface Area) 1.42 m2 Norma Pacer [facility] Work Phone: 04-02-2020 15:39-0400 Height 147.32 cm Norma Pacer [facility] Work Phone: 04-02-2020 15:39-0400 Pulse (Heart Rate) 84 /min Norma Pacer [facility] Work Phone: 01-28-2020 15:12-0400 BP Diastolic 88 mm[Hg] Norma Pacer IW-Thnrmdfnfh-[address] Work Phone: 01-28-2020 15:12-0400 BP Systolic 148 mm[Hg] Norma Pacer DA-Hmsakjnmek-Ft l [address] Work Phone: 01-28-2020 15:09-0400 BMI (Body Mass Index) 24.66 kg/m2 Norma Pacer EK-Jpyxgaisaf-Hna [address] Work Phone: 01-28-2020 15:09-0400 Body Temperature 98.6 [degF] Norma Pacer ZO-Kyrqwshfxa-M al ker 7th Floor Work Phone: 01-28-2020 15:09-0400 Body weight 53.52 kg Norma Pacer AX-Agfxndsmkk-Lz l ker 7th Floor Work Phone: 01-28-2020 15:09-0400 BSA (Body Surface Area) 1.46 m2 Norma Pacer SH-Kcujbkhjbq-Vxy ker 7th Floor Work Phone: 01-28-2020 15:09-0400 Height 147.32 cm Norma Pacer BA-Vichquskjf-Ln l ker 7th Floor Work Phone: 06-03-2019 17:09-0500 BMI (Body Mass Index) 27.59 kg/m2 [facility] Work Phone: 06-03-2019 17:09-0500 Body Temperature 98.7 [degF] [facility] Work Phone: 06-03-2019 17:09-0500 Body weight 59.88 kg [facility] 125 Work Phone: 06-03-2019 17:09-0500 BP Diastolic 60 mm[Hg] [facility] Work Phone: 06-03-2019 17:09-0500 BP Systolic 90 mm[Hg] [facility] Work Phone: 06-03-2019 17:09-0500 BSA (Body Surface Area) 1.53 m2 [facility] 125 Work Phone: 06-03-2019 17:09-0500 Height 147.32 cm [facility] 125 Work Phone: 04-19-2019 12:30-0400 BP Diastolic 62 mm[Hg] Juan José Goyal [facility]- [place] 04-19-2019 12:30-0400 BP Systolic 93 mm[Hg] Juan José Goyal [place] 04-19-2019 12:30-0400 Pulse (Heart Rate) 60 /min [facility] LaytonLa [facility] [place] 04-19-2019 12:30-0400 Pulse Oximetry 95 % Juan José [place] 04-19-2019 12:30-0400 Respiratory Rate 18 /min Juan [facility] [place] 04-19-2019 11:09-0400 BMI (Body Mass Index) 25.08 kg/m2 Juan [place] 04-19-2019 11:09-0400 Body Temperature 97.81 [degF] Juan José Goyal [employer] [place] 04-19-2019 11:09-0400 Body weight 54.43 kg Juan [place] 04-19-2019 11:09-0400 Height 147.3 cm Juan José Layton[place] Encounters Encounter Date Encounter Type Care Provider Facility Start: 12-04-2024 End: 12-04-[address] David Long DO -[facility] Work Phone: Start: 12-04-2024 End: 12-04-[address] David Syed DO Work Phone: [facility] Work Phone: Start: 12-04-2024 End: 12-04-2024 ambulatory David Syed Facility:[facility] Start: 11-11-2024 End: 11-11-[address] David Syed DO Work Phone: [facility] Work Phone: Start: 11-11-2024 End: 11-11-[address] David PETTYLaboratory, IONE Start: 11-11-2024 End: 11-11-2024 ambulatory David Syed Facility:[facility] Start: 10-07-2024 End: 10-07-[address] David Syed DO Work Phone: [facility] Work Phone: Start: 10-07-2024 End: 10-07-[address] David Dale [place] Work Phone: Start: 10-07-2024 End: 10-07-2024 ambulatory David Syed Facility:[facility] Start: 09-25-2024 End: 09-25-[address] David Long DO -[facility] Work Phone: Start: 09-25-2024 End: 09-25-2024 ambulatory David Syed [facility] Start: 09-16-2024 End: 09-16-[address] David Syed DO Work Phone: [facility] Work Phone: Start: 09-16-2024 End: 09-16-[address] David Thomson, [facility] Start: 09-16-2024 End: 09-16-2024 ambulatory David Syed Facility:[facility] Start: 08-28-2024 End: 08-28-[address] [facility] Work [facility]: Start: 08-28-2024 End: 08-28-2024 ambulatory David ySed Facility:[facility] Start: 04-29-2024 Emergency department patient visit Facility:[id number] Start: 04-26-2024 End: 04-26-2024 Emergency department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 mL/kg), IntraVENous, at 495.9 mL/hr, Administer over 121 Minutes, ONCE, On Mon03/09/22 at 2114, For 1 dose 2129 (New Bag - Prov ider: Dario Hedrick, FRANCESCA)2335 (Stopped - Provider: Dario Hedrick RN) ondansetron (ZOFRAN) injection 4 mg (COMPLETED) 4 mg, IntraVENous, ONCE, 1 dose, On Mon03/09/22 at 2112129 (Given - Provid er: Dario Hedrick RN) sodium chloride flush 0.9 % injection 3 mL(Linked Group 1) 3 mL, IntraVENous, EVERY 8 HOURS, First dose on Mon03/09/22 at 2114, Until Discontinued, Flush line with 3-5 mL 2114 (Due) Linked Groups Order Group 1: Saline lock IV (COMPLETED) Routine, CONTINUOUS, Starting on Mon03/09/22 at 2114, Until Specified And sodium chloride flush 0.9 % injection 3 mLJump to med 3 mL, IntraVENous, EVERY 8 HOURS, First dose on Mon03/09/22 at 2114, Until Discontinued
Flush line with 3-5 mL
<item><item> Privacy Markings (unrecogniz ed section and content) Section Author: Neeta Cunningham PROHIBITION ON REDISCLOSURE OF CONFIDENTIAL INFORMATION This notice accompanies a disclosure of information concerning a client made to you with the consent of such client. Section Author: Neeta Cunningham PROHIBITION ON REDISCLOSURE OF CONFIDENTIAL INFORMATION This notice accompanies a disclosure of information concerning a client made to you with the consent of such client. Care Teams (unrecognized sec tion and content) Dealer Compliance Representative Relationship Specialty Start Date End Date Kyree Young MD [place] [address] PCP - General Family Medicine 09/10/17 Team Status: Active Member Role Status Dates Dr. David Syed , DO Primary Care Provider Active Team Status: Inactive Member Role Status Dates Dr. David Syed DO Attending Provider Active Start: August 28, 2024 End: August 28, 2024 Team Status: Inactive Member Role Status Dates Dr. David Syed DO Primary Care Provider Active Start: September 16, 2024 End: September 16, 2024 Dr. David Syed DO Attending Provider Active Start: September 16, 2024 End: September 16, 2024 Team Status: Inactive Member Role Status Dates Dr. David Syed DO Primary Care Provider Active Start: September 25, 2024 End: September 25, 2024 Dr. David Syed DO Attending Provider Active Start: September 25, 2024 End: September 25, 2024 Dr. David Syed DO Referring Provider Active Start: September 25, 2024 End: September 25, 2024 Team Status: Inactive Member Role Status Dates Dr. David Syed DO Primary Care Provider Active Start: October 07, 2024 End: October 07, 2024 Dr. David Syed DO Attending Provider Active Start: October 07, 2024 End: October 07, 2024 Dr. David Syed DO Referring Provider Active Start: October 07, 2024 End: October 07, 2024 Team Status: Inactive Member Role Status Dates Dr. David Syed DO Primary Care Provider Active Start: November 11, 2024 End: November 11, 2024 Dr. David Syed DO Attending Provider Active Start: November 11, 2024 End: November 11, 2024 Dr. David Syed DO Referring Provider Active Start: November 11, 2024 End: November 11, 2024 Team Status: Inactive Member Role Status Dates Dr. David Syed DO Primary Care Provider Active Start: December 04, 2024 End: December 04, 2024 Dr. David Syed DO Attending Provider Active Start: December 04, 2024 End: December 04, 2024 Dr. David Syed DO Referring Provider Active Start: December 04, 2024 End: December 04, 2024 Team Status: Active Member Role Status Dates Dr. David Syed DO Primary Care Provider Active Start: December 04, 2024 Dr. David Syed DO Attending Provider Active Start: December 04, 2024 Dr. David Syed DO Referring Provider Active Start: December 04, 2024 Goals (unrecognized section and content) Goals may be documented in a n alternate sectionGoals may be documented in an alternate sectionGoals may be documented in an alternate sectionGoals may be documented in an alternate sectionGoals may be documented in an alternate section FOR RECORDS PERTAINING TO PATIENTS WHO ARE OR HAVE BEEN ENROLLED IN A CHEMICAL DEPENDENCY/SUBSTANCEABUSE PROGRAM, SOME INFORMATION MAY BE OMITTED. This clinical summary was aggregated from multiple sources. Caution should be exercised in using it in the provision of clinical care. This summary normalizes information from multiple sources, and as a consequence, information in this document may materially change the coding, format and clinical context of patient data. In addition, data may be omitted in some cases. CLINICAL DECISIONS SHOULD BE BASED ON THE PRIMARY CLINICAL RECORDS. [facility]. provides no warranty or guarantee of the accuracy or completeness of information in this document.
--- NOTE | 2025-02-02 04:04 | PCA ---
CHART FAXED [facility] CALLED
[2025-02-02 04:16] VITALS: PULSE 82; RESP 14; O2SAT 97
--- NOTE | 2025-02-02 04:25 | EX.ED.VIS.PS ---
HPI HPI - Psych History of Present Illness Chief Complaint: Mental Health Informant: patient Narrative Narrative: Brought in by police as a pink slip for evaluation. Patient states this evening she had a phone she was pushing buttons SOS came up. Police came to her house. In discussion she reports she does have a history of depression anxiety with medications including clonazepam and by her PCP. She states she lost her dog of 13 years earlier this month. She has been feeling down from this. Addition found out her ex significant other likes her daughter. She does not own guns. She states she is questioned by police if she had any weapons, she reported only weapon she would have is knives. When discussed if she would hurt herself how would she do it, she states she would possibly take pills. She has done this years ago. She states she had thoughts earlier due to her stress. None currently. States she had some alcohol earlier when she was out with her daughter. She does not follow her counselor or psychiatrist. No medical complaints. No cough no vomiting no urinary symptoms. PFSH PFSH Medical History COPD (chronic obstructive pulmonary disease) Age related osteoporosis GERD (gastroesophageal reflux disease) Thyroid nodule Home Medications ?Medication ?Instructions ?Recorded ?Last Taken ?Type levothyroxine 50 mcg tablet 50 mcg PO QDAY #90 tabs 09/18/24 Unknown Rx (Synthroid) clonazepam 1 mg tablet (Klonopin) 1 mg PO QDAY #30 tabs 12/03/24 Unknown Rx furosemide 20 mg tablet 20 mg PO QAM #60 tabs 12/04/24 Unknown Rx sertraline 100 mg tablet 100 mg PO DAILY #90 TABLETS 01/27/25 Unknown Rx Allergy/AdvReac Type Severity Reaction Status Date / Time No Known Allergies Allergy Unverified 12/04/24 14:07 Family History Unknown Asthma Anxiety Diabetes CAD (coronary artery disease) Myocardial infarction Hypertension Age related osteoporosis Depression Autoimmune disorder Mental disorder Suicidal behavior Surgical History H/O partial thyroidectomy H/O knee surgery History of appendectomy Social History adopted: No household members: none housing: apartment current occupational status: disabled current occupational exposures/hazards: No pets and animals: Yes history of recent travel: Yes sexually active: No Smoking Status: Current every day smoker tobacco type: e-cigarettes how long ago did patient quit smokin years second hand exposure: No alcohol intake: never substance use type: marijuana caffeine: Yes eating out: other details: daily during the past year weight has: increased > 10 lbs what type of physical activity do you participate in: none wei/sikhism: Mandaeism seatbelt use: always do you feel safe at home: Yes ROS ROS ED Constitutional Constitutional ED: Denies chills, fever(s) or sweats ENT ENT ED: Denies sore throat Cardiovascular Cardiovascular: Denies chest pain, leg edema, palpitations or racing heartbeat Respiratory/Chest Respiratory/Chest: Denies cough, dyspnea or dyspnea on exertion Gastrointestinal Gastrointestinal: Denies abdominal pain, diarrhea, nausea or vomiting Genitourinary Genitourinary ED: Denies dysuria, hematuria or urinary frequency Musculoskeletal Musculoskeletal: Denies back pain, extremity pain or neck pain Integumentary Denies rash or wounds Neurologic Neurologic: Denies headache(s), paresthesias or weakness Psychiatric Psychiatric: Reports depression and suicidal ideation EXAM Physical Exam Const Vital Signs: 02/02/25 02:17 Temperature 97.8 F Temperature Source Temporal Pulse Rate 93 Respiratory Rate 16 Blood Pressure 113/86 H Blood Pressure Mean 95 Pulse Ox 98 Positive well nourished and well developed General Appearance ED: well developed and NAD HEENT Reports moist mucous membranes normocephalic and atraumatic Eyes General Eye ED: Yes normal appearance of both eyes Neck full ROM Chest Wall Chest: Negative for tenderness Resp normal respiratory effort and normal air movement Effort and Inspection: symmetric chest movement; Negative for respiratory distress Cardio regular rate, regular rhythm and no murmurs Peripheral Pulses: pulses 2+ throughout GI normal to inspection, nondistended, normoactive bowel sounds and non-tender Palpation: Negative for guarding or rebound tenderness present Extremity normal to inspection General Extremety ED: Negative for edema or tenderness General Extremity: Negative for edema Neuro oriented x3 and no sensory deficits noted Sensorium / Orientation: awake and alert Psych Psych Narrative: Cooperative with depression symptoms. Suicidal ideations earlier today. None currently. Skin no rashes or lesions noted and no wounds MDM MDM MDM Narrative Medical decision making narrative: Interventions / MDM: Differential diagnosis: Depression, suicidal ideation Diagnosis considered but do not suspect: N/A My EKG interpretation: N/A Imaging independently reviewed and interpreted by myself: N/A External documents reviewed: N/A Test considered but not ordered:N/A ED course: Patient cooperative currently without any suicidal ideations. She had pink slipped by PD. Medical clearance labs was obtained. 0425: Toxicology presumptive positive benzo if she is on clonazepam. THC noted. Alcohol 58. She clinically not intoxicated. Labs slight hypokalemia 3.0. Oral replacement ordered. Hemoglobin 12.3. She is medically cleared. I will have her evaluate by crisis as she did report suicidal ideation with depression symptoms from losing her dog and relationship issues. 0514: Patient evaluated by crisis. There is concerns for inconsistencies with her story. They are concerned for her suicidal ideations. They do feel she would be appropriate for placement. They will work on this. [place] slip will be continued from police. 0635: Patient accepted to [facility]. Awaiting transport. Re-evaluation: stable Disposition discussed with patient/family/significant other: Patient Case discussed with consulting clinician: N/A This note was generated with [employer] dictation software. It may contain incorrect words, spelling, and punctuation that were not noted in checking the note before signing. Lab Data Attestation: I reviewed the patient's lab results. Labs: Laboratory Results - last 24 hr 02/02/25 02:30 WBC 6.4 RBC 3.93 L Hgb 12.3 Hct 35.7 L MCV 90.8 MCH 31.3 MCHC 34.5 RDW Std Deviation 42.5 RDW Coeff of Derek 12.9 Plt Count 256 MPV 10.4 Immature Gran % (Auto) 0.300 Neut % (Auto) 59.5 Lymph % (Auto) 31.8 Upson % (Auto) 6.7 Eos % (Auto) 0.8 Baso % (Auto) 0.9 Absolute Neuts (auto) 3.8 Absolute Lymphs (auto) 2.04 Nucleated RBC % 0 Sodium 140 Potassium 3.0 L Chloride 103 Carbon Dioxide 22.0 Anion Gap 15 BUN 11 Creatinine 0.85 Estim Creat Clear Calc 54.17 Est GFR (MDRD) Non-Af 76 BUN/Creatinine Ratio 12.9 Glucose 109 H Calcium 8.5 Urine Opiates Screen NEGATIVE U Buprenorphine Qual NEGATIVE Ur Oxycodone Screen NEGATIVE Urine Methadone Screen NEGATIVE Urine Fentanyl Screen NEGATIVE Ur Barbiturates Screen NEGATIVE Ur Phencyclidine Scrn NEGATIVE Ur Amphetamines Screen NEGATIVE U Benzodiazepines Scrn PRESUMPTIVE POSITIVE Urine Cocaine Screen NEGATIVE U Cannabinoids Screen PRESUMPTIVE POSITIVE Ethyl Alcohol 58.6 H Discharge Plan Triage Chief Complaint: Mental Health ED Provider: Johnathan Lamar Dx/Rx/DC Orders Clinical Impression: Depression, Suicidal ideation, Hypokalemia Prescriptions: No Action furosemide 20 mg tablet 20 mg PO QAM Qty: 60 1RF Rx Instructions: as needed for fluid retension. levothyroxine [Synthroid] 50 mcg tablet 50 mcg PO QDAY Qty: 90 1RF clonazepam [Klonopin] 1 mg tablet 1 mg PO QDAY Qty: 30 2RF sertraline 100 mg tablet 100 mg PO DAILY Qty: 90 0RF Primary Care Provider: Vinod Syed Referrals: Vinod Syed DO [Primary Care Provider] - Print Language: Sinhala Disposition Disposition: Psychiatric Hospital or Unit
[2025-02-02 04:56] VITALS: PULSE 80; O2SAT 100
--- NOTE | 2025-02-02 06:03 | PCA ---
pt referred to [facility] for placement
[2025-02-02 06:46] VITALS: BP 114/72; PULSE 82; RESP 20; O2SAT 98
[2025-02-02] MEDS: Potassium Chloride Oral Tablet 20 MEQ 40 MEQ PO (06:47)
[2025-02-02 08:36] VITALS: BP 131/87; PULSE 90; RESP 18; TEMP 36.6; O2SAT 98
== END 2025-02-02 08:40 ==
PROVIDERS: Emergency Provider Emergency Medicine; PCP Family Medicine; Visit Provider Emergency Medicine
DX: F32.A Depression, unspecified (principal); J44.9 Chronic obstructive pulmonary disease, unspecified; E87.6 Hypokalemia; R45.851 Suicidal ideations; F41.9 Anxiety disorder, unspecified; Z79.899 Other long term (current) drug therapy; Z90.49 Acquired absence of other specified parts of digestive tract; F17.290 Nicotine dependence, other tobacco product, uncomplicated
CPT/HCPCS: 80048; 80307; 82077; 85025; 99285; A4216

== ENCOUNTER 2025-05-17 20:09 | Emergency (ER) | payer MEDICARE, MEDICAID, SELFPAY ==
[2025-05-17 20:10] VITALS: BP 105/76; PULSE 99; RESP 18; TEMP 36; O2SAT 99; BMI 28.1
--- NOTE | 2025-05-17 21:07 | CT_ITS ---
PROCEDURE: CT/Abdomen/Pelvis W IV Cont ONLY
[2025-05-17] MEDS: 0.9% Normal Saline (1000mL) 1,000 ML 999 ML IV (21:20)
[2025-05-17 21:31] LABS: Hematocrit 33.7 % (37-47); Hemoglobin 11.5 g/dL (12.0-15.0); Immature Granulocytes Count 0.020 X10^3/uL (0.0-0.0); Mean Corp Hgb Conc 34.1 g/dL (32-36); Mean Corpuscular Volume 92.8 fL (81-99); Mean Platelet Vol. 11.5 fl (6.2-12.0); NRBC Flagged by Analyzer 0.4 % (0-5); POSITIVE COUNT YES; Platelet Count 261 K/mm3 (150-450); RBC Distribution Width CV 12.7 % (11.6-14.6); RBC Distribution Width SD 42.9 fl (35.1-43.9); Red Blood Count 3.63 M/mm3 (4.2-5.4); White Blood Count 5.2 K/mm3 (4.4-11.0)
--- NOTE | 2025-05-17 21:35 | EX.ED.DYSGE1 ---
HPI History of Present Illness Chief Complaint: Diarrhea Narrative Narrative: Chief complaint and HPI: 64-year-old female with past medical history of thyroid disease, depression presents for evaluation of bright red blood on the toilet paper. Patient states she has had diarrhea for approximately 1 year. She has not followed up with her physician or GI specialist. States about a week ago the diarrhea started to improve and she is having less bowel movements. Not constipated. States tonight after a bowel movement she noticed some blood on the toilet paper but not in the toilet bowl. She states 2 days ago she had some abdominal cramping that has since resolved. She denies any fever, chills, shortness of breath, chest pain, nausea, vomiting, dysuria. She denies any recent camping or travel. Denies any antibiotic use. Review of systems: See HPI Medications: As listed on the chart Allergies: As listed on the chart PFSH: Per chart Vital signs: As listed on the chart. Reviewed. Physical exam: Gen: A&O x3, NAD Head: Normocephalic, atraumatic Eyes: No sclera icterus, conjunctiva clear ENT: Moist mucous membranes CV: RRR, no murmurs Resp: Lungs CTA BL, no w/r/c GI: Abd soft, non-distended, non-tender, no r/r/g Rectal: Normal external examination. External hemorrhoid that is not thrombosed. Normal tone and sensation. No masses, fluctuance, or tenderness. No pain out of proportion. Stool brown on gloved finger Musc: Full ROM, no deformity Skin: Warm, dry Neuro: Alert, oriented, grossly intact, sensation intact Psych: Cooperative, appropriate mood and affect [facility] Medical History COPD (chronic obstructive pulmonary disease) Age related osteoporosis GERD (gastroesophageal reflux disease) Thyroid nodule Home Medications ?Medication ?Instructions ?Recorded ?Last Taken ?Type clonazepam 1 mg tablet (Klonopin) 1 mg PO QDAY #30 tabs 03/05/25 Unknown Rx levothyroxine 50 mcg tablet 50 mcg PO QDAY #90 tabs 03/31/25 Unknown Rx (Synthroid) furosemide 20 mg tablet 20 mg PO QAM #60 tabs 04/08/25 Unknown Rx sertraline 100 mg tablet 100 mg PO DAILY #90 TABLETS 05/12/25 Unknown Rx Allergy/AdvReac Type Severity Reaction Status Date / Time No Known Allergies Allergy Verified 05/17/25 20:10 Family History Unknown Asthma Anxiety Diabetes CAD (coronary artery disease) Myocardial infarction Hypertension Age related osteoporosis Depression Autoimmune disorder Mental disorder Suicidal behavior Surgical History H/O partial thyroidectomy H/O knee surgery History of appendectomy Social History adopted: No household members: none housing: apartment current occupational status: disabled current occupational exposures/hazards: No pets and animals: Yes history of recent travel: Yes sexually active: No Smoking Status: Current every day smoker tobacco type: e-cigarettes how long ago did patient quit smokin years second hand exposure: No alcohol intake: never substance use type: marijuana caffeine: Yes eating out: other details: daily during the past year weight has: increased > 10 lbs what type of physical activity do you participate in: none wei/temple: [employer] seatbelt use: always do you feel safe at home: Yes EXAM Physical Exam Const Vital Signs: 05/17/25 20:10 05/17/25 22:02 Temperature 96.8 F L 97.7 F L Temperature Source Temporal Oral Pulse Rate 99 76 Respiratory Rate 18 18 Blood Pressure 105/76 99/66 Blood Pressure Mean 85 77 Pulse Ox 99 98 Oxygen Delivery Method Room Air Room Air MDM MDM MDM Narrative Medical decision making narrative: 64-year-old female with past medical history of thyroid disease, depression presents for evaluation of bright red blood on the toilet paper. Patient states she has had diarrhea for approximately 1 year. She has not followed up with her physician or GI specialist. States about a week ago the diarrhea started to improve and she is having less bowel movements. Not constipated. States tonight after a bowel movement she noticed some blood on the toilet paper but not in the toilet bowl. Differential diagnosis includes but is not limited to hemorrhoidal bleeding, dehydration, colitis, IBS, Crohn's, C. difficile. NS bolus ordered. Laboratory workup ordered including stool cultures and CT abdomen pelvis. CBC without leukocytosis. Patient has anemia with hemoglobin 11.5. Platelet count unremarkable. CMP unremarkable. Lipase unremarkable. Stool occult blood positive. Lactic acid unremarkable. Patient has not had a bowel movement here in the emergency department therefore enteric pathogen panel, stool lactoferrin, and C. difficile not able to be obtained. CT abdomen pelvis shows a large hiatal hernia containing the gastric fundus and proximal body showing organoaxial orientation. This is consistent with volvulus. I did personally call the radiologist, he does think that this is chronic and not acute as there is no obstruction. Colonic diverticulosis with sigmoid colon wall thickening, possible diverticulitis. Patient has not had any bowel movement here in the emergency department. She has had no further bleeding. Given the bleeding was on the toilet paper and not in the bowl, I suspect this was likely secondary to hemorrhoidal bleeding. Patient has no leukocytosis and states that her diarrhea has recently improved therefore I have low suspicion for diverticulitis therefore will not place patient on antibiotics. Follow-up with GI. She confirmed understanding. Given this chronic volvulus I did speak with our general surgery Dr. Baca. Given patient is not having any epigastric abdominal pain, nausea, vomiting agrees that this is likely chronic follow-up outpatient. Patient states she has a known hiatal hernia. Follow-up with primary care physician. Return back to ED if symptoms change or worsen. Patient is able to discharge home. Impression: 1. Bright red blood per rectum, suspect hemorrhoidal bleeding 2. Anemia 3. Hiatal hernia with chronic volvulus Lab Data Labs: Laboratory Results - last 24 hr 05/17/25 21:20 WBC 5.2 RBC 3.63 L Hgb 11.5 L Hct 33.7 L MCV 92.8 MCH 31.7 MCHC 34.1 RDW Std Deviation 42.9 RDW Coeff of Derek 12.7 Plt Count 261 MPV 11.5 Immature Gran % (Auto) 0.400 Neut % (Auto) 54.8 Lymph % (Auto) 34.6 [place] % (Auto) 7.7 Eos % (Auto) 1.7 Baso % (Auto) 0.8 Absolute Neuts (auto) 2.8 Absolute Lymphs (auto) 1.79 Nucleated RBC % 0.4 Platelet Estimate ADEQUATE RBC Morphology NORM C+C Sodium 140 Potassium 3.9 Chloride 106 Carbon Dioxide 25.2 Anion Gap 9 BUN 15 Creatinine 0.88 Estim Creat Clear Calc 50.55 Est GFR (MDRD) Non-Af 73 BUN/Creatinine Ratio 17.1 Glucose 123 H Lactic Acid 1.1 Calcium 8.7 Total Bilirubin 0.17 AST 27 ALT 10 Alkaline Phosphatase 64 Total Protein 6.2 Albumin 3.7 Globulin 2.5 Albumin/Globulin Ratio 1.5 Lipase 37 Radiography Diagnostic Testing: Clinical Impression(s) from Imaging Studies Abdomen/Pelvis CT 05/17/25 21:07 IMPRESSION: Large hiatus hernia containing the gastric fundus and proximal body showing organo-axial orientation. Colonic diverticulosis with sigmoid colon wall thickening, possibly diverticulitis. No diverticulitis. Reading Location: [place] [id number] Discharge Plan Triage Chief Complaint: Diarrhea ED Provider: Trev Allan Dx/Rx/DC Orders Clinical Impression: Bright red blood per rectum Instructions: Understanding Rectal Bleeding Prescriptions: No Action clonazepam [Klonopin] 1 mg tablet 1 mg PO QDAY Qty: 30 3RF levothyroxine [Synthroid] 50 mcg tablet 50 mcg PO QDAY Qty: 90 1RF furosemide 20 mg tablet 20 mg PO QAM Qty: 60 1RF Rx Instructions: as needed for fluid retension. sertraline 100 mg tablet 100 mg PO DAILY Qty: 90 0RF Primary Care Provider: Vinod Syed Referrals: Vinod Syed DO [Primary Care Provider, Internal Medicine] - 3-5 Days Junior Gallardo DO [Med Staff - Active Staff, Gastroenterology] - 3-5 Days Colin Baca MD [Med Staff - Active Staff, General Surgery] - 3-5 Days Activity Restrictions/Additional Instructions: Return back to ED if symptoms change or worsen. Suspect her bleeding was secondary to hemorrhoids although no clear etiology. Follow-up with GI and primary care physician. Follow-up with general surgery for your hernia. Print Language: Chinese Disposition Disposition: Home, Self Care
[2025-05-17 21:47] LABS: Lipase 37 U/L (13-75)
[2025-05-17 21:53] LABS: AST(SGOT) 27 U/L (<=31); Alanine Aminotransfer ALT/SGPT 10 U/L (<=34); Albumin, Serum 3.7 g/dL (3.4-4.8); Alkaline Phosphatase 64 U/L (35-104); Anion Gap 9 (5-15); BUN 15 mg/dL (4-19); BUN/Creat Ratio 17.1 RATIO (10-20); Calcium,Total 8.7 mg/dL (7.6-11.0); Carbon Dioxide 25.2 mmol/L (21.0-32.0); Chloride 106 mmol/L (98-108); Estimated Creatinine Clearance 50.55 ml/min (50-250); Globulin 2.5 g/dL (2.2-4.2); Glucose 123 mg/dL (70-99); Potassium 3.9 mmol/L (3.3-5.1)
[2025-05-17 21:55] LABS: Differential Indicated SCAN CRITERIA MET
[2025-05-17 21:57] LABS: Red Cell Morphology NORM C+C NORMAL (NORM C&C)
[2025-05-17 22:02] VITALS: BP 99/66; PULSE 76; RESP 18; TEMP 36.5; O2SAT 98
[2025-05-17 23:44] VITALS: BP 99/66; PULSE 76; RESP 18; TEMP 36.5; O2SAT 98
== END 2025-05-17 23:46 | disposition home or self-care (01) ==
PROVIDERS: Emergency Provider Surgery; PCP Family Medicine; Visit Provider Surgery
DX: R19.7 Diarrhea, unspecified (principal); K56.2 Volvulus; J44.9 Chronic obstructive pulmonary disease, unspecified; K44.9 Diaphragmatic hernia without obstruction or gangrene; D64.9 Anemia, unspecified; K62.5 Hemorrhage of anus and rectum; Z90.49 Acquired absence of other specified parts of digestive tract; F17.290 Nicotine dependence, other tobacco product, uncomplicated
CPT/HCPCS: 74177; 80053; 82274; 83605; 83690; 85025; 96360; 99282; Q9967; A4216